=== PATIENT | male | born 1970 | race Two or more races ===

== ENCOUNTER → 2020-09-14 09:12 | Outpatient (BNVA) | payer OTHER, SELFPAY | PROVIDERS: PCP Internal Medicine; Referring Provider Internal Medicine; Visit Provider Nurse Practitioner | DX: Z01.818 Encounter for other preprocedural examination (principal); Z80.0 Family history of malignant neoplasm of digestive organs | CPT/HCPCS: 99213 ==

== ENCOUNTER 2020-10-12 07:35 | Day surgery (SDC) | payer OTHER, SELFPAY ==
[2020-10-06 10:57] VITALS: BMI 24.7
--- NOTE | 2020-10-10 13:49 | P.CONAN_ITS ---
Documented by User: Sussy Coreas 10/10/20 13:49 HPI - Anesthesia Eval Consult details Narrative: 50yo M for Colonoscopy ON LICENSE OF [facility] Past Medical History Medical History Elevated cholesterol JOHN on CPAP Family History Family History Mother Cancer Father No problems noted. Brother Colon abnormality Surgical History Surgical History No history of previous surgery Social History Social History Alcohol intake: current Alcohol intake frequency: does not drink Smoking Status: Former smoker Smoking Quit Date: 2016 Use of substances other than those prescribed or required for medical reasons: No Advance Directives: No Advance Directives Information Provided: No Advance Directives on File: No Meds Allergies Allergy/AdvReac Type Severity Reaction Status Date / Time No Known Allergies Allergy Verified 10/06/20 10:54 Home Medications Medication Instructions Recorded Confirmed Type fluticasone propionate 2 spray INTRANASAL DAILY 10/06/20 10/06/20 History nabumetone 1 tab PO BID 10/06/20 10/06/20 History Exam Exam Date and Time: October 10, 2020 1349 Height,Weight and Vital Signs: Height 5 ft 9 in Weight 76.204 kg Assessment and Plan Assessment Anesthesia Assessment: Chart Reviewed Documented by User: Lyn Villarreal 10/12/20 08:28 ON LICENSE OF [facility] Past Medical History Medical History Elevated cholesterol JOHN on CPAP Family History Family History Mother Cancer Father No problems noted. Brother Colon abnormality Surgical History Surgical History No history of previous surgery Social History Social History Alcohol intake: current Alcohol intake frequency: does not drink Smoking Status: Former smoker Smoking Quit Date: 2016 Use of substances other than those prescribed or required for medical reasons: No Advance Directives: No Advance Directives Information Provided: No Advance Directives on File: No Meds Allergies Allergy/AdvReac Type Severity Reaction Status Date / Time No Known Allergies Allergy Verified 10/06/20 10:54 Home Medications Medication Instructions Recorded Confirmed Type fluticasone propionate 2 spray INTRANASAL DAILY 10/06/20 10/06/20 History nabumetone 1 tab PO BID 10/06/20 10/06/20 History Exam Airway Mallampati Class: II TM Dist: >3cm Neck ROM: Full Loose/Missing/Broken Teeth: No Heart: RRR Lungs: CTA Assessment and Plan Assessment Anesthesia Assessment: Anesthesia Plan Discussed and Chart Reviewed Final Anesthetic Review NPO: Yes ASA Class: II Final Preanesthetic Review: Meds/Allgs Chart Reviewed, Consent Obtained/Reviewed and Anes Risks/Benef Reviewed Patient Risk: Low Procedure Risk: Low Anesthetic Plan Anesthetic Plan: MAC: Disposition: Standard PACU
[2020-10-12 07:55] VITALS: BP 133/86; PULSE 75; RESP 18; TEMP 36.2; O2SAT 99
[2020-10-12] MEDS: Lactated Ringers 1,000 ML 100 ML IVCONT (08:07)
--- NOTE | 2020-10-12 08:38 | MHC.SHP ---
Pre-Procedural Eval Section A The patient is an INPATIENT: No Changes since office visit: Yes Patient answered all questions; No Cold of Flu in the past 2 weeks, No New Medical Problems and No Changes in Medication The History & Physical has been completed within 30 days and I have reviewed it.: Yes Section B Chief Complaint: SCREENING,FAMILY HX OF COLON CANCER Allergies: Allergies Allergy/AdvReac Type Severity Reaction Status Date / Time No Known Allergies Allergy Verified 10/06/20 10:54 Plan Diagnosis/Plan: Unchanged Patient has been examined and remains a candidate for the planned procedureYES
--- NOTE | 2020-10-12 09:08 | PM.PROC ---
Brief Operative Note Date of procedure: 10/12/20 Pre-op diagnosis: COLON CANCER SCREENING, POSITIVE FAMILY HX--2 MEMBERS Post-op diagnosis: other (NEG EXAM; EXCELLENT PREP) Procedure: COLONOSCOPY Anesthesia: MAC (AL SINGH ANTI, MD) Surgeon: Marisela Crum Estimated blood loss (mL): 0 Pathology: none sent Condition: stable Disposition: PACU
[2020-10-12 09:14] VITALS: BP 107/68; PULSE 70; RESP 12; TEMP 36.2; O2SAT 98
--- NOTE | 2020-10-12 09:19 | PC.NURSE ---
patient alert and awake. beulah po challenge.
[2020-10-12 09:33] VITALS: BP 133/86; PULSE 65; RESP 16; O2SAT 100
--- NOTE | 2020-10-12 09:39 | PC.NURSE ---
iv removed. dressing self in chair. ride called. no complaints.
--- NOTE | 2020-10-12 09:51 | HO.POSTANES ---
Post Anesthesia Evaluation Post Anesthesia Evaluation Vital Signs: Vital Signs Temp Pulse Resp BP Pulse Ox 10/12/20 09:33 97.1 F 65 16 133/86 100 10/12/20 09:14 97.1 F 70 12 107/68 98 10/12/20 07:55 97.1 F 75 18 133/86 99 Anesthesia: Monitored Mental Status: Awake Pain Control: Satisfactory Nausea/Vomiting: None Hydration: Adequate Anesthesia-Related Issues: No Anes. Related Issues
--- NOTE | 2020-10-12 10:29 | OP_ITS ---
SURGEON: Marisela Crum MD PREOPERATIVE DIAGNOSIS: Colon cancer screening, Postive family history POSTOPERATIVE DIAGNOSIS: Negative exam. PROCEDURE PERFORMED: Colonoscopy. ESTIMATED BLOOD LOSS: No blood loss. COMPLICATIONS: No complications. ANESTHESIA: Monitored. ANESTHESIOLOGIST: Vangie Cordero CRNA. ASSISTANTS: No hygiene assistant. SPECIMENS: No specimens CAR STORER: Dr. Crum. CONDITION: Postprocedure, stable. FINDINGS: Digital rectal exam revealed prostate to be normal to digital palpation. Video colonoscope was introduced without difficulty. It was navigated into the rectosigmoid and sigmoid and up through descending, transverse, ascending colon down into the cecal cap. Appendiceal orifice was seen. Ileocecal valve was seen. Prep was good to excellent throughout. Full rotational views on withdrawing the scope. No mucosal lesions were seen. Anorectal verge clear. PLAN AND CURRENT RECOMMENDATIONS: Repeat asymptomatic screening with positive family history of colon cancer is 5 years. GRAFT OR IMPLANTS: No grafts or implants. Marisela Crum MD MEN/MODL / [id number] MTDD
== END 2020-10-12 10:12 | disposition home or self-care (01) ==
PROVIDERS: PCP Internal Medicine; Visit Provider Internal Medicine Gastroenterology
PROC: 0DJD8ZZ Inspection of Lower Intestinal Tract, Via Natural or Artificial Opening Endoscopic (ICD-10-PCS; CPT 45378; principal; 2020-10-12 08:30)
DX: Z12.11 Encounter for screening for malignant neoplasm of colon (principal); Z80.0 Family history of malignant neoplasm of digestive organs; G47.33 Obstructive sleep apnea (adult) (pediatric); E78.00 Pure hypercholesterolemia, unspecified; Z99.89 Dependence on other enabling machines and devices; Z79.899 Other long term (current) drug therapy; Z87.891 Personal history of nicotine dependence
CPT/HCPCS: 45378

== ENCOUNTER → 2020-11-21 09:00 | Outpatient (BNVA) | payer OTHER, SELFPAY | PROVIDERS: PCP Internal Medicine; Visit Provider Nurse Practitioner Family | DX: Z76.89 Persons encountering health services in other specified circumstances (principal) ==

== ENCOUNTER 2021-04-19 10:36 | Outpatient (REF) | payer OTHER, SELFPAY | END 2021-04-19 10:37 | disposition home or self-care (01) | LOC: HO.LAB 10:36 | PROVIDERS: Visit Provider Internal Medicine | DX: Z20.822 Contact with and (suspected) exposure to COVID-19 (principal) | CPT/HCPCS: C9803; U0003; U0005 ==

== ENCOUNTER 2024-06-09 08:29 | Outpatient (REF) | payer MEDICAID, SELFPAY ==
[2024-06-09 14:10] LABS: MANUAL DIFF FLAG NO
[2024-06-09 14:18] LABS: Basophils Percent Auto 0.6 % (0-2); Eosinophils Absolute Auto 0.2 X10*3/uL (0.0-0.4); Eosinophils Percent Auto 2.8 % (0-4); Hematocrit 41.9 % (42.0-52.0); Hemoglobin 13.6 g/dl (14.0-18.0); Imm Gran Abs Auto 0.01 X10*3/uL (0.00-0.03); Imm Gran Pct Auto 0.2 % (0.0-0.4); Lymphocytes Absolute Auto 1.9 X10*3/uL (1.2-4.9); Lymphocytes Percent Auto 35.1 % (20-40); Mean Corpuscular HGB Conc 32.5 g/dl (31.0-36.0); Mean Corpuscular Hemoglobin 28.2 pg (27.0-33.0); Mean Corpuscular Volume 86.9 fL (80.0-98.0); Mean Platelet Volume 11.4 fL (9.4-12.4); Monocytes Absolute Auto 0.4 X10*3/uL (0.1-1.2); Monocytes Percent Auto 6.5 % (2-11); Neutrophils Percent Auto 54.8 % (45-73); Platelet Count 216 X10*3/uL (160-400); Red Blood Count 4.82 X10*6/uL (4.60-5.80); Red Cell Distribution Width 13.4 % (11.0-16.0); White Blood Count 5.4 X10*3/uL (4.8-10.8)
[2024-06-09 14:53] LABS: Alanine Aminotransferase 19 U/L (0-40); Albumin Level 4.3 g/dL (3.5-5.0); Alkaline Phosphatase 66 U/L (39-117); Anion Gap 12 (12-20); Aspartate Amino Transferase 24 U/L (5-37); Bilirubin Total 1.8 mg/dL (0.0-1.0); Blood Urea Nitrogen 12 mg/dL (9-16); Carbon Dioxide 26 mmol/L (22-29); Chloride 107 mmol/L (96-108); Cholesterol 199 mg/dL (<200); Estimated Glomerular Filt Rate > 60; Glucose Random 86 mg/dL (60-115); HDL Cholesterol 42 mg/dL (>40); LDL Cholesterol Calculated 129 mg/dL (<100); Potassium 3.9 mmol/L (3.3-5.1); Sodium 141 mmol/L (135-145); TSH reflex Free T4 0.87 uIU/mL (0.32-4.0); Total Protein 7.1 g/dL (6.5-8.0); Triglycerides 143 mg/dL (<150)
[2024-06-10 08:43] LABS: HIV AB/AG Nonreactive (Nonreactive); HIV Num 1 0.05 S/CO (0.00-0.99); ~HepC Num1 0.15 S/CO (0.00-0.79); ~Hepatitis C Antibody Nonreactive (Nonreactive)
== END 2024-06-09 08:30 | disposition home or self-care (01) ==
LOC: HO.CHCLDS 08:29
PROVIDERS: Visit Provider Internal Medicine
DX: E66.09 Other obesity due to excess calories (principal); Z68.30 Body mass index [BMI] 30.0-30.9, adult
CPT/HCPCS: 36415; 80053; 80061; 84443; 85025; 86803; 87389

== ENCOUNTER 2024-06-11 10:54 | Outpatient (AMB) | payer MEDICAID, SELFPAY ==
--- NOTE | 2024-06-11 07:56 | MHC.OFFVIS ---
Intake Visit Reasons: LDCT Allergies No Known Allergies Allergy (Verified 10/06/20 10:54) HPI HPI LDCT: Details: Initial visit for this 53yo former smoker with a 21PYH. Patient started smoking at age 16 for 28 years at 1/2-1ppd. He quit about 9 years ago in 2014. Reports marijuana use. . Denies second hand smoke exposure. Denies exposure to chemicals or substances like asbestos. . Denies known family history of lung cancer. Denies personal history of cancers. Denies chest CT in last year. . Denies recent travel outside the [place]. Denies recent respiratory illness or recent hospitalization for respiratory issues. Denies testing positive for COVID. Admits receiving COVID Vaccine.x 2. . Denies fever, chills, new/worsening cough, hemoptysis, hoarseness or dysphagia. Denies significant chest pain, significant dyspnea or unintentional weight loss. Patient Lung Cancer Screening Questionnaire reviewed with patient by provider. . Shared Decision Making Completed. Patient meets criteria. Discussed in detail with patient, the risk vs benefit of LDCT screening. Patient consents to proceed with scan. Discussed and encouraged continued smoking cessation. [facility] Medical History (Updated 06/11/24 @ 11:13 by Gayle Alvarado PA-C) Elevated cholesterol JOHN on CPAP Personal history of nicotine dependence Family history of colon cancer Surgical History (Updated 06/08/24 @ 08:44 by Gayle Alvarado PA-C) History of colonoscopy Family History Mother Cancer Father No problems noted. Brother Colon abnormality Social History (Updated 06/11/24 @ 11:13 by Gayle Alvarado PA-C) Alcohol intake: current Alcohol intake frequency: does not drink Patient Tobacco Use Status: Former Tobacco user Years Smoked: (onset 16yo, 1/2-1ppd x 28yrs, 21pyh, quit 2014) Assessment & Plan Assessment & Plan (1) Personal history of nicotine dependence: Comment: (former smoker - onset 16yo, 1/2-1ppd x 28yrs, 21pyh, quit 2014) Code(s): Z87.891 - Personal history of nicotine dependence Category: Medical Plan: - SDM visit completed today in office. - Patient meets criteria for LDCT for lung cancer screening purposes and is asymptomatic. - Smoking cessation counseling offered. Patients can always call [phone]. - Will arrange for a LDCT scan of the chest for screening purposes at [facility]. - Risks, benefits, and alternatives were discussed in detail and the patient agrees to proceed. - Risks discussed include but are not limited to: radiation exposure, anxiety during testing and while awaiting results, false negatives, false positives and possibility of additional intervention such as further imaging or surgical procedures for benign disease. - Benefits are obviously detection of lung cancer at an early stage which can lead to improved outcomes. - Discussed the importance of screening program compliance with adherence to yearly LDCT scan as scheduled - or sooner interval scans for personalized screening regimen. - Discussed follow up plan. Our office will send a letter discussing results and if needed set up phone call and office visit based on CT findings. - Patient educated on results categorization and the management decisions for suspicious findings potentially found on the screening LDCT scan. Any patient with a Lung RADS score of 3 or 4 will be reviewed by a multidisciplinary team at [facility] to form a plan of action in regards to scan findings. - If further work up is warranted for a suspicious lung finding this will be followed by the Lung Cancer Screening program in conjunction with the Thoracic Surgery Department at [facility]. - A copy of the office note and LDCT will be sent to the patient's PCP - as well as documentation on any associated further plans of care. - Incidental findings on LDCT are the PCP's responsibility. These findings are indicated with an S finding on the LDCT Assessment. A note discussing the findings will be sent to the PCP who is then responsible for further management. - All questions answered.? Coding Level of Care Code Lung Cancer Screening G0296 Diagnoses Personal history of nicotine dependence Z87.891
== END 2024-06-11 13:06 | disposition home or self-care (01) ==
PROVIDERS: PCP Internal Medicine; Referring Provider Internal Medicine; Visit Provider Physician Assistant Medical
DX: Z87.891 Personal history of nicotine dependence (principal)
CPT/HCPCS: G0296

== ENCOUNTER 2024-06-11 11:16 | Outpatient (REF) | payer MEDICAID, SELFPAY ==
--- NOTE | ~2024-06-11 | CT_ITS ---
EXAMINATION: CT LOW-DOSE SCREENING CHEST WITHOUT CONTRAST CLINICAL INFORMATION: Nicotine dependence. The patient has a 27 pack-year history of smoking, having quit 9 years ago. COMPARISON: None available. TECHNIQUE: Multidetector volumetric CT imaging of the chest is performed on a Siemens SOMATOM Definition scanner without contrast using low dose technique. Additional 2D coronal and sagittal reformatted images and axial 3D maximum intensity projection (MIP) images are generated on the CT workstation. This CT examination was performed using dose optimization techniques as appropriate, variously including the following: *Automated exposure control *Adjustment of mA and/or kV according to patient size (this includes techniques or standardized protocols for targeted exams where dose is matched to indication/reason for exam; i.e. extremities or head) *Use of iterative reconstruction technique TOTAL EXAM DLP: 55 mGy-cm. CTDIvol: 1.53 mGy. Please note, due to [employer] contractual, systems, and staffing issues, a radiologist was not available for review and dictation until 07/20/2024. FINDINGS: Mild respiratory motion limits sensitivity at the lung bases bilaterally. PULMONARY NODULES: -2 mm nodule right anterior apex, (series 5, image 77). -3 mm fissural nodule posterior left upper lobe, subpleural, most likely intrapulmonary lymph node (series 5, image 169). -2No suspicious nodules. LUNGS: -Lungs bilaterally symmetrically expanded. No effusion or pneumothorax. Central airways normal. Small airways normal. -No consolidations or abnormal groundglass opacities. MEDIASTINUM: Aorta is normal in caliber and course. No aneurysm. -Main pulmonary artery normal in size. -No abnormal lymphadenopathy present in the mediastinum or hilum. -Normal esophagus with probable small type I hiatus hernia. -Heart size is top normal. No pericardial effusion. CORONARY ARTERY CALCIFICATION: None visualized on this study. THYROID GLAND: Unremarkable to the extent seen. CHEST WALL/AXILLA: No masses or abnormal lymph nodes. UPPER ABDOMEN: -Calcified granuloma in segment 2 of the liver. -No additional findings allowing for low-dose technique. OSSEOUS STRUCTURES: No suspicious lytic or blastic bone lesion. There is a moderate to severe dextroconvex thoracolumbar scoliosis, apex at T9. Associated mild degenerative spondylosis. CT/CT lung screening IMPRESSION: 1. Mild motion degradation at the lung bases. 2. Tiny pulmonary nodules measuring up to 3 mm in the left major fissure. No suspicious nodules identified. 3. No active lung disease. No lymphadenopathy. 4. Moderate to severe right convex scoliosis of the thoracolumbar spine, apex at T9. 5. Small type I hiatus hernia. ASSESSMENT: 1. Lung-RADS Category 2: Benign appearance or behavior of nodules. Respiratory motion. 2. Lung-RADS Category S: None. RECOMMENDATION: Continued routine annual low-dose CT lung screening in 1 year is recommended. An order for CT CHEST LOW DOSE CANCER SCREENING ([id number]) can be placed.
== END 2024-06-11 11:17 | disposition home or self-care (01) ==
LOC: HO.CT 11:16
PROVIDERS: Visit Provider Physician Assistant Medical
DX: Z12.2 Encounter for screening for malignant neoplasm of respiratory organs (principal); Z87.891 Personal history of nicotine dependence
CPT/HCPCS: 71271; G0296

== ENCOUNTER → 2024-06-11 11:16 | Outpatient (BNV) | payer MEDICAID, SELFPAY | PROVIDERS: Visit Provider Radiology Diagnostic Radiology | DX: F17.200 Nicotine dependence, unspecified, uncomplicated (principal) | CPT/HCPCS: 71271 ==

== ENCOUNTER → 2024-08-20 13:43 | Outpatient (REF) | payer MEDICAID, SELFPAY ==
--- NOTE | 2024-08-20 13:46 | CA_ITS ---
Transthoracic Echocardiogram Patient (Last, First, Middle): Bryan Godinez, Gender: Male Date of : 1970 Age: 54 Procedure Date: 08/20/2024 Procedure Type: Transthoracic Echocardiogram Location: OP Height: 175.26 cm Weight: 70.31 kg BSA: 1.85 m2 Heart Rate: 63 bpm BP: 142 / 62 mmHg Promotions Specialist: SB Referring MD: King Arteaga MD Symptoms: HEART MURMUR Study Quality: Adequate ECG Rhythm: Sinus Conclusions: - 1. Normal LV ejection fraction of 50-55% with apical wall motion abnormality with presence of a small apical thrombus with normal filling pattern 2. At least moderate aortic regurgitation 3. Upper limits of normal ascending aortic size 4. No gross pericardial effusion Findings Procedure Information Contrast agent, definity, is being given per protocol without apparent complications. Left Ventricle Mildly increased left ventricular cavity size. There is normal left ventricular wall thickness. The left ventricular systolic function is low normal. Spectral Doppler is indicative of a normal filling pattern. There is a small immobile apical thrombus in the left ventricle. Wall Motion Rest Echo Findings The apex segment is dyskinetic. All other scored wall segments showed normal motion. Right Ventricle Normal right ventricular cavity size and systolic function. Atria Both atria are normal in size. There is no evidence of interatrial shunt. Aortic Valve There is mild calcification of the aortic valve. There is mild thickening of the aortic valve. There is no aortic valve stenosis. There is moderate aortic valve regurgitation. Mitral Valve Normal mitral valve structure and function. There is trace mitral valve regurgitation. There is no mitral valve stenosis. Pulmonic Valve The pulmonic valve is likely normal. There is trace pulmonic valve regurgitation. Tricuspid Valve Likely normal tricuspid valve structure and function. Tricuspid regurgitation envelope is inadequate for calculation of right ventricular systolic pressure. Normal right atrial pressure. Great Vessels All visible segments of the aorta are normal in size. The pulmonary artery was not well visualized. There is no dilatation of the ascending aorta measuring 3.60 cm. Venous The inferior vena cava is normal in size and collapses greater than 50% with inspiration. Pericardium/Pleural There is no evidence of pericardial effusion. Prior Study Comparison No prior study available for comparison. Measurements 2D Linear Measurements IVSd: 1.17 0.6-0.9/0.6-1.0 cm LVIDd: 6.13 3.9-5.3/4.2-5.9 cm LVIDd Index: 3.31 2.4-3.2/2.2-3.1 cm/m2 LVIDs: 3.94 2.0-3.6 cm LVPWd: 1.15 0.7-1.1 cm LA Diam: 3.20 2.7-3.8/3.0-4.0 cm LAIDs Index: 1.73 1.5-2.3 cm/m2 LV Mass: 455.49 67-162/88-224 g LV Mass Index: 246.21 43-95/49-115 g/m2 LVOT Diam: 2.30 3.0+(-)1.3 cm 2D Systolic Function EF 4C: 51.30 >55% EF 2C: 50.60 >55% EF BiP: 50.90 >55% Mitral Valve MV Pk E: 0.70 MV PK A: 0.55 E/A: 1.30 E'Lateral: 11.40 E/E' Lat: 6.10 Aortic Valve AoV Pk Alexy: 1.70 AoV Mn Alexy: 1.13 AoV VTI: 0.34 AoV Pk Grad: 12.00 Aov Mn Grad: 6.00 JOSE Cont.VTI: 3.49 AI Pk Alexy: 4.02 AI VTI: 2.09 AI Republic: 2.55 LVOT LVOT Pk Alexy: 1.46 LVOT Mn Alexy: 1.01 LVOT VTI: 0.28 LVOT Pk Grad: 9.00 LVOT Mn Grad: 5.00 LVOT Diam: 2.30 LVOT Area: 4.15 Diastolic Function MV Pk E: 0.70 MV Pk A: 0.55 E/A: 1.30 E' Laterial: 11.40 E/E' Lat: 6.10 Right Ventricle TAPSE (mm): 16.30 TVS' Alexy: 11.00 Tricuspid Valve RA Press: 3.00 Great Vessels Aorta Sinus of Valsalva: 3.50 2.0-3.5 cm Ao Asc: 3.60 2.1-3.4 cm Ao Arch: 3.10 Pulmonary Veins Pulm Vein S/D 1.10 Pulmonary Valve PV Pk Alexy: 0.94 Peak PV Grad: 4.00 Updated in Other Vendor System with Status of Final Harpreet Meadows MD electronically signed on 08/20/2024 3:21:30 PM with status of Final
--- NOTE | 2024-08-20 16:22 | HO.CARDTECH ---
5511 Dr. Meadows notified of preliminary echo findings. Images reviewed by Dr. Meadows. Instructed ok to let pt go home. Dr. Meadows will attempt to contact ordering MD.
== END ==
LOC: HO.CARD 13:43
PROVIDERS: PCP Internal Medicine; Visit Provider Internal Medicine
DX: R01.1 Cardiac murmur, unspecified (principal)
CPT/HCPCS: 93306; Q9957

== ENCOUNTER → 2024-08-20 13:46 | Outpatient (BNV) | payer MEDICAID, SELFPAY | PROVIDERS: PCP Internal Medicine; Visit Provider Internal Medicine Cardiovascular Disease | DX: I35.1 Nonrheumatic aortic (valve) insufficiency (principal) | CPT/HCPCS: 93306 ==

== ENCOUNTER 2024-12-31 08:57 | Outpatient (REF) | payer MEDICAID, SELFPAY ==
--- OUTSIDE RECORDS SUMMARY | 2024-12-31 09:25 | XMS_ITS | Encounter Summary ---
Author Organization [employer] Address [address] [place] [address] Care Team Providers Care Oven Unloader Name Role Phone King Gary MD Primary Care Prov ider Encounter Details Date Type Department Care Team (Latest Contact Info) Description 12/27/2024 Travel Social History Tobacco Use Types Packs/Day Years Used Date Smoking Tobacco: Former Cigarettes 2013 Smokeless Tobacco: Never Alcohol Use Standard Drinks/Week Comments Never 0 (1 standard drink = 0.6 oz pur e alcohol) Depression Answer Date Recorded Patient Health Questionnaire-9 Score 0 04/02/2024 Patient Health Questionnaire-9 Score 0 04/02/2024 Last PHQ-9: Questionnaire Data Not on file 0 04/02/2024 Housing Stability Answer Date Recorded What is your housing situation today? I have adelfo willis 04/02/[address] you li ve. Do you have problems with any of the following? None of the above 04/02/2024 Food Insecurity Answer Date Recorded Within the past 12 months, y ou worried that your food would run out before you got money to buy more: Never True 04/02/2024 Within the past 12 months,th e food you bought just didn't last and you didn't have enough money to get more: Never True 01/2024 Transportation Answer Date Recorded In the past 12 months, has l ack of transportation kept you from medical appts, meetings, work or from getting things needed for daily living? No 04/02/2024 Utilities Answer Date Recorded In the past 12 months, has t he electric, gas, oil or water company threatened to shut off services in your home? No 04/02/2024 Depression Answer Date Recorded Patient Health Questionnaire-2 Score 0 04/02/2024 Internet Access Answer Date Recorded Internet Access Q1 Yes 12/27/2024 Internet Access Q2 Not on file 12/27/2024 Sex and Gender Information Value Date Recorded Sex Assigned at Male 09/30/2022 10:20 AM EDT Legal Sex Male 10:20 AM EDT Gender Identity Male 09/30/2022 10:20 AM EDT Sexual Orientation Straight 09/30/2022 10 :20 AM EDT documented as of this encounter Plan of Treatment Upcoming Encounters Date Type Department Care Team (Late st Contact Info) Description 01/27/2025 9:30 AM EST Telemedicine [facility] [address] [place] [address] King Gary MD [address] [place] [address] documented as of this encounter Visit Diagnoses Not on filedocumented in this encounter Additional Health Concerns Assessment Noted Time PHQ-9 Depression Total Score: 0 04/02/20 9:31 AM EDT documented as of this encounter Care Teams Oven Unloader Relationship Specialty Start Date End Date King Gary MD [address] [place] [address] PCP - General Internal Medicine 04/03/24 documented as of this encounter
--- OUTSIDE RECORDS SUMMARY | 2024-12-31 09:25 | XMS_ITS | Encounter Summary ---
Author Organization [employer] Address [address] [place] [address] Care Team Providers Care Radiotelephone Operator Name Role Phone King Gary MD Primary Care Prov ider Reason for Visit * Reason Onset Date Comments Lab Orders 04/08/2024 Encounter Details Date Type Department Care Team ([facility] st Contact Info) Description 04/08/2024 Telephone [facility] [address] [place], [place] [phone] King Gary MD [address] [place], [place] [phone] Lab Orders Social History Tobacco Use Types Packs/Day Years [...] Recorded Patient Health Questionnaire-2 Score 0 04/02/2024 Sex and Gender Information Value Date Recorded Sex Assigned at Male 09/30/2022 10:20 AM EDT Legal Sex Male 10:20 AM EDT Gender Identity Male 09/30/2022 10:20 AM EDT Sexual Orientation Straight 09/30/2022 10 :20 AM EDT documented as of this encounter Miscellaneous Notes * Telephone Encounter - Cathy Ronnie - 04/08/2024 12:41 PM EDT Tc from pt requesting to get labs done for check up. States discusses with provider during 04/02 tele. Please contact pt at [phone] documented in this encounter Plan of Treatment Upcoming Encounters Date Type Department Care Team (Late st Contact Info) Description 01/27/2025 9:30 AM EST Telemedicine [facility] [address] [place] [address] King Gary MD [address] [place] [address] documented as of this encounter Visit Diagnoses Not on filedocumented in this encounter Additional Health Concerns Assessment Noted Time PHQ-9 Depression Total Score: 0 04/02/20 9:31 AM EDT documented as of this encounter Care Teams Radiotelephone Operator Relationship Specialty Start Date End Date King Gary MD [address] [place] [address] PCP - General Internal Medicine 04/03/24 documented as of this encounter
--- OUTSIDE RECORDS SUMMARY | 2024-12-31 09:25 | XMS_ITS | Clinical Summary ---
Author Organization [employer] Address [address] [place] [address] Care Team Providers Care Surgeon'S Assistant Name Role Phone King Gary MD Primary Care Prov ider Allergies No known active allergies Medications apixaban (Eliquis) 5 MG tablet Take 1 tablet (5 mg) by mouth 2 times daily. 60 tablet 3 5 Active atorvastatin (Lipitor) 20 MG tablet Take 1 tablet (20 mg) by mouth Once per day. 90 tablet 3 5 026 Active atorvastatin (Lipitor) 20 MG tablet Take 1 tablet (20 mg) by mouth Once per day. 30 tablet 11 4 025 Discontinued(Re order (will not trigger notification to Pharmacy)) Eliquis 5 MG tablet TAKE 1 TABLET(5 MG) BY MOUTH TWICE DAILY 60 tablet 2 4 025 Discontinued(Re order (will not trigger notification to Pharmacy)) Active Problems Problem Noted Date Diagnosed Date Apical mural thrombus 12/27/2024 Assessment & Plan (12/27/2024 10:09 AM EST): Patient on eliquis, no side effects reported, he has not followed with cardiology, missed October appointment, discussed importance and risk associated with findings, he refers has scheduled appointment for january Heart murmur 07/22/2024 Assessment & Plan (07/22/2024 11:49 AM EDT): Denied chest pain, shortness of breath, will order a echocardiogram for evaluation Encounter for physical examination 07/22/2024 Assessment & Plan (07/22/2024 11:53 AM EDT): Examination was remarkable for a high-pitched crescendo-decrescendo, midsystolic ejection murmur, patient is asymptomatic, lungs were clear. Rest of examination was unremarkable Also elevated blood pressure but upon repeating it was 139/74, discussed low sodium diet, will monitor Mixed hyperlipidemia 07/12/2024 Assessment & Plan (12/27/2024 10:17 AM EST): On atorvastatin, new labs will be ordered for guidance of medical therapy Assessment & Plan (07/26/2024 1:37 PM EDT): Patient has experienced dry mouth and nausea on the first days of taking atorvastatin, told to take it at night, watch for myalgia, skin color changes or abdominal pain, if this occurs or if he is not tolerating it yet call back to switch probably to rosuvastatin. 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 He has never been hospitalized, has not seen a provider in over 3-4 years. Has multiple family member with cancer. Up to date with colon cancer screening done on 10/2020 due in 5 years. Screening for lung cancer 04/02/2024 Assessment & Plan (04/02/2024 10:10 AM EDT): >20 pack year smoking history, stopped smoking 9-10 years ago, will send for lung cancer screening Screening for colon cancer 04/02/2024 Assessment & Plan (04/02/2024 10:25 AM EDT): Done on 10/2020, due in 5 years Encounters Date Type Department Care Team Description 12/27/2024 9:45 AM EST Telemedicine [facility] MED [facility] PEDS [address] [place] [address] King Gary MD Mixed hyperlipidemia (Primary Dx); Apical mural thrombus 12/27/2024 Travel 11/06/2024 Refill [facility] [address] [place] [address] King Gary MD 11/03/2024 Telephone [facility] [address] [place] [address] King Gary MD 10/26/2024 Orders Only [facility] [address] [place] [address] King Gary MD Verrukimberley palmaris (Primary Dx) from Last 3 Months Family History Medical History Relation Name Comments Hyperlipidemia Father Cancer Mother Cancer Sister Relation Name Status Comments Father Mother Sister Social History Tobacco Use Types Packs/Day Years Used Date Smoking Tobacco: Former Cigarettes 1 20 1 994 - 2014 Smokeless Tobacco: Never Tobacco Cessation:Counseling Given: Not Answered Alcohol Use Standard Drinks/Week Comments Never 0 [...] Orientation Straight 09/30/2022 10 :20 AM EDT Last Filed Vital Signs Vital Sign Reading Time Taken Comments Blood Pressure 144/81 06/02/2024 3:26 PM EDT Pulse 60 06/02/2024 3:26 PM EDT Temperature 37.1 ??C (98.7 ??F) 06/02/2024 3:26 PM ED T Respiratory Rate 20 06/02/2024 3:26 PM EDT Oxygen Saturation - - Inhaled Oxygen Concentration - - Weight 68.5 kg (151 lb) 06/02/2024 3:26 PM EDT Height 167.6 cm (5' 6 ) 06/02/2024 3:26 PM EDT Body Mass Index 24.37 06/02/2024 3:26 PM EDT Plan of Treatment Upcoming Encounters Date Type Department Care Team (Late st Contact Info) Description 01/27/2025 9:30 AM EST Telemedicine [facility] MED & PEDS [address], [place] [phone] King Gary MD [address] [place], [place] [phone] Health Maintenance Due Date Last Done Comments CT Colonography 1969 FIT DNA/Cologuard 1969 FIT 1969 FOBT 1969 Sigmoidoscopy 1969 Alcohol/Substance Use Screening 1981 Hepatitis B Vaccines (1 of 3 - 19+ 3-dose series) 1988 DTaP/Tdap/Td Vaccines (1 - Tdap) 01/06/2019 01/05/2019 Lung Cancer Screening 2019 Pneumococcal Vaccine: 50+ Years (1 of 1 - PCV) 2019 Zoster Vaccines (1 of 2) 2019 COVID-19 Vaccine (2 - 2023-2 5 season) 2024 04/04/2021 Influenza Vaccine (#1) 2024 Depression Screening 04/02/2025 04/02/2024, 04/02/2024 Tobacco Screening 06/02/2025 06/02/2024 Colonoscopy 10/15/2025 Colorectal Cancer Screening 10/15/2025 SDOH Screening 12/27/2025 12/27/2024 Lipid Panel 06/09/2029 06/09/2024 RSV Patients and Patients Aged 60 years or older (1 - 1-dose 75+ series) 2044 HIV Screening Completed 06/09/2024 Hepatitis C Screening Completed 06/09/2024 HIB Vaccines Aged Out No longer eligi ble based on patient's age to complete this topic HPV Vaccines Aged Out No longer eligi ble based on patient's age to complete this topic Hepatitis A Vaccines Aged Out No long er eligible based on patient's age to complete this topic IPV Vaccines Aged Out No longer eligi ble based on patient's age to complete this topic Meningococcal Vaccine Aged Out No isai palak eligible based on patient's age to complete this topic Pneumococcal Vaccine: Pediatrics (0 to 5 Years) and At-Risk Patients (6 to 49) Years) Aged Out No longer eligible b ased on patient's age to complete this topic RSV under 20 months Aged Out No longe r eligible based on patient's age to complete this topic Rotavirus Vaccines Aged Out No longer eligible based on patient's age to complete this topic Procedures Procedure Name Priority Date/Time Associated Diagnosis Comments HEPATITIS C AB W/REFL TO HCV RNA, QN, PCR Routine 06/09/2024 8:31 AM EDT Class 1 obesity due to excess calories without serious comorbidity with body mass index (BMI) of 30.0 to 30.9 in adult HIV 1/2 ANTIGEN/ANTIBODY, FOURTH GENERATION W/RFL Routine 06/09/2024 8:31 AM EDT Class 1 obesity due to excess calories without serious comorbidity with body mass index (BMI) of 30.0 to 30.9 in adult LIPID PANEL, STANDARD Routine 06/09/2024 8:31 AM EDT Class 1 obesity due to excess calories without serious comorbidity with body mass index (BMI) of 30.0 to 30.9 in adult from Last 3 Months or Most Recently Relevant to Health Maintenance Results * Hepatitis C Antibody with Reflex to HCV, RNA, Quantitative, Real-Time PCR (06/09/2024 8:31 AM EDT) Hepatitis C Antibody Nonreactive Nonreactive [facility] Comment:Antibodies to HCV no t detected; does not exclude early acuteHCV infection. Blood Venous blood specimen / Unknown 06/09/2024 8:31 AM EDT 06/09/2024 1:59 PM EDT us King Arteaga MD LAB BLOOD ORDERABL ES Final Result [facility] [address] [place] [phone] * HIV-1/2 Antigen and Antibodies, Fourth Generation, with Reflexes (06/09/2024 8:31 AM EDT) HIV AB/AG Nonreactive Nonreactive [facility] Comment:HIV-1 p24 Ag and/or HIV-1/HIV-2 Ab not detected.A test result that is nonreactive does not exclude thepossibility of exposure to or infection with HIV-1 and/orHIV-2. Nonreactive results in this assay for individualswith prior exposure to HIV-1 and/or HIV-2 may be due toantigen and antibody levels that are below the limit ofdetection of this assay.The [employer] Return HIV Ag/Ab Combo assay result andsupplemental assay results should be interpreted inconjunction with the patient's clinical presentation,history and other laboratory results. If the results areinconsistent with clinical evidence, additional testing issuggested to confirm the result. Blood Venous blood specimen / Unknown 06/09/2024 8:31 AM EDT 06/09/2024 1:59 PM EDT us King Arteaga MD LAB BLOOD ORDERABL ES Final Result [facility] [address] [place] [phone] * (ABNORMAL) Lipid Panel, Standard (06/09/2024 8:31 AM EDT) Triglycerides 143 <150 mg/dL [facility] Comment:Desirable Triglyceri de: less than 150 mg/dLBorderline High Triglyceride 150-199 mg/dLHigh Triglyceride: 200-499 mg/dLVery High Triglyceride: greater than or equal to 5OO mg/dL Cholesterol 199 <200 mg/dL [facility] Comment:Desirable Cholestero l: less than 200 mg/dLBorderline High Cholesterol: 200-239 mg/dLHigh Cholesterol: greater than 239 mg/dL LDL Cholesterol Calculated 129(H) <100 mg/dL [facility] Comment:Desirable LDL: less than 100 mg/dLNear Optimal/Above Optimal LDL: 110- 129 mg/dLBorderline High LDL: 130-159 mg/dLHigh LDL: 160-189 mg/dLVery High LDL: greater than or equal to 190 mg/dL HDL Cholesterol 42 >40 mg/dL [facility] Comment:Desirable HDL: great er than 40 mg/dL Note: This HDL assay may give artificially low results in patients with liver disease. Blood Venous blood specimen / Unknown 06/09/2024 8:31 AM EDT 06/09/2024 1:59 PM EDT us King Arteaga MD LAB BLOOD ORDERABL ES Final Result [facility] [address] [place] [phone] from Last 3 Months or Most Recently Relevant to Health Maintenance Insurance [address] Care Teams Surgeon'S Assistant Relationship Specialty Start Date End Date King Gary MD [address] [place] [phone] PCP - General Internal Medicine 04/03/24
--- OUTSIDE RECORDS SUMMARY | 2024-12-31 09:25 | XMS_ITS | Encounter Summary ---
Author Organization [employer] Address [address] [place] [address] Care Team Providers Care Renewable Energy Division Manager Name Role Phone King Gary MD Primary Care Prov ider Reason for Visit * Reason Onset Date Comments Appointment Request 04/22/2024 Lab Orders 04/22/2024 Encounter Details Date Type Department Care Team ([facility] st Contact Info) Description 04/22/2024 Telephone [facility] [address] [place] [address] King Gary MD [address] [place], [place] [phone] Appointment Request; Lab Orders Social History Tobacco Use Types [...] encounter Miscellaneous Notes * Telephone Encounter - Pk Mai - 04/22/2024 2:56 PM EDT Tc from patient requesting Lab orders states was told by Provider needs to be seen first than the orders would be put in feature writer does not see anything noted on patient chart documented in this encounter Plan of Treatment Upcoming Encounters Date Type Department Care Team (Late st Contact Info) Description 01/27/2025 9:30 AM EST Telemedicine [facility] PEDS [address] [place] [address] King Gary MD [address] [place] [address] documented as of this encounter Visit Diagnoses Not on filedocumented in this encounter Additional Health Concerns Assessment Noted Time PHQ-9 Depression Total Score: 0 04/02/20 9:31 AM EDT documented as of this encounter Care Teams Renewable Energy Division Manager Relationship Specialty Start Date End Date King Gary MD [address] [place] [phone] PCP - General Internal Medicine 04/03/24 documented as of this encounter
--- OUTSIDE RECORDS SUMMARY | 2024-12-31 09:25 | XMS_ITS | Encounter Summary ---
Author Organization [employer] Address [address] [place] [address] Care Team Providers Care Laborer Wharf Name Role Phone King Gary MD Primary Care Prov ider Encounter Details Date Type Department Care Team (Latest Contact Info) Description 12/27/2024 9:45 AM EST Telemedicine [facility] [address] [place], [place] [phone] King Gary MD [address] [place], [place] [phone] Mixed hyperlipidemia (Primary Dx); Apical mural thrombus Social History Tobacco Use Types Packs/Day Years [...] AM EDT documented as of this encounter Progress Notes * King Arteaga MD - 12/27/2024 9:45 AM EST Subjective Patient ID: Bryan Pedro is a 54 y.o. male who presents for No chief complaint on file.. Hyperlipidemia This is a chronic problem. He has no history of chronic renal disease, diabetes, hypothyroidism, liver disease, obesity or nephrotic syndrome. Pertinent negatives include no chest pain, focal sensoryloss, focal weakness, leg pain, myalgias or shortness of breath. Review of Systems Respiratory: Negative for shortness of breath. Cardiovascular: Negative for chest pain. Musculoskeletal: Negative for myalgias. Neurological: Negative for focal weakness. Objective Physical Exam Neurological: General: No focal deficit present. Mental Status: He is oriented to person, place, and time. Psychiatric: Mood and Affect: Mood normal. Behavior: Behavior normal. Assessment/Plan Problem List Items Addressed This Visit Mixed hyperlipidemia - Primary On atorvastatin, new labs will be ordered for guidance of medical therapy Relevant Orders Comprehensive Metabolic Panel Lipid Panel, Standard Apical mural thrombus Patient on eliquis, no side effects reported, he has not followed with cardiology, missed October appointment, discussed importance and risk associated with findings, he refers has scheduled appointment for january documented in this encounter Miscellaneous Notes * Assessment & Plan Note - King Arteaga MD - 12/27/2024 10:17 AM ESTAssociated Problem(s): Mixed hyperlipidemia On atorvastatin, new labs will be ordered for guidance of medical therapy * Assessment & Plan Note - King Arteaga MD - 12/27/2024 10:09 AM ESTAssociated Problem(s): Apical mural thrombus Patient on eliquis, no side effects reported, he has not followed with cardiology, missed October appointment, discussed importance and risk associated with findings, he refers has scheduled appointment for january documented in this encounter Plan of Treatment Upcoming Encounters Date Type Department Care Team (Late st Contact Info) Description 01/27/2025 9:30 AM EST Telemedicine [facility] [address] [place] [address] King Gary MD [address] [place] [address] Scheduled Orders Name Type Priority Associated Diagnoses Orde r Schedule Comprehensive Metabolic Panel Lab Routine Mixed hyperlipidemia Expected: 12/27/2024 (Approximate), Expires: 12/27/2025 Lipid Panel, Standard Lab Routine Mixed hyperlipidemia Expected: 12/27/2024 (Approximate), Expires: 12/27/2025 documented as of this encounter Visit Diagnoses Diagnosis Mixed hyperlipidemia- Primary Apical mural thrombus documented in this encounter Additional Health Concerns Assessment Noted Time PHQ-9 Depression Total Score: 0 04/02/20 9:31 AM EDT documented as of this encounter Care Teams Laborer Wharf Relationship Specialty Start Date End Date iKng Gary MD [address] [place] [address] PCP - General Internal Medicine 04/03/24 documented as of this encounter
[2024-12-31 12:40] LABS: Alanine Aminotransferase 28 U/L (0-40); Albumin Level 4.2 g/dL (3.5-5.0); Alkaline Phosphatase 59 U/L (39-117); Anion Gap 9 (12-20); Aspartate Amino Transferase 34 U/L (5-37); Bilirubin Total 1.9 mg/dL (0.0-1.0); Blood Urea Nitrogen 12 mg/dL (9-16); Calcium 9.6 mg/dL (8.4-10.2); Carbon Dioxide 30 mmol/L (22-29); Chloride 107 mmol/L (96-108); Cholesterol 142 mg/dL (<200); Estimated Glomerular Filt Rate > 60; Glucose Random 93 mg/dL (60-115); HDL Cholesterol 56 mg/dL (>40); LDL Cholesterol Calculated 72 mg/dL (<100); Potassium 4.1 mmol/L (3.3-5.1); Sodium 142 mmol/L (135-145); Total Protein 7.1 g/dL (6.5-8.0); Triglycerides 72 mg/dL (<150)
== END 2024-12-31 08:58 | disposition home or self-care (01) ==
LOC: HO.CHCLDS 08:57
PROVIDERS: Visit Provider Internal Medicine
DX: E78.2 Mixed hyperlipidemia (principal)
CPT/HCPCS: 36415; 80053; 80061

== ENCOUNTER 2025-03-28 07:56 | Outpatient (AMB) | payer MEDICAID, SELFPAY ==
--- OUTSIDE RECORDS SUMMARY | 2025-03-28 08:01 | XMS_ITS | Encounter Summary ---
Author Organization [employer] Address [address] [place] [address] Care Team Providers Care Video Effects Editor Name Role Phone King Gary MD Primary Care Prov ider Reason for Visit * Reason Onset Date Comments Lab Orders 04/08/2024 Encounter Details Date Type Department Care Team ([facility] st Contact Info) Description 04/08/2024 Telephone [facility] [address] [place], [place] [phone] King Gary MD [address] [place], [place] [phone] Lab Orders Social History Tobacco Use Types [...] during 04/02 tele. Please contact pt at [phone] documented in this encounter Plan of Treatment Upcoming Encounters Date Type Department Care Team (Late st Contact Info) Description 04/26/2025 9:30 AM EDT Telemedicine [facility] [address] [place] [address] King Gary MD [address] [place] [address] documented as of this encounter Visit Diagnoses Not on filedocumented in this encounter Additional Health Concerns Assessment Noted Time PHQ-9 Depression Total Score: 0 04/02/20 9:31 AM EDT documented as of this encounter Care Teams Video Effects Editor Relationship Specialty Start Date End Date King Gary MD [address] [place] [address] PCP - General Internal Medicine 04/03/24 documented as of this encounter
--- OUTSIDE RECORDS SUMMARY | 2025-03-28 08:01 | XMS_ITS | Encounter Summary ---
Author Organization [employer] Address [address] [place] [address] Care Team Providers Care Residential Appraiser Name Role Phone King Gary MD Primary Care Prov ider Reason for Visit * Reason Onset Date Comments Appointment Request 04/22/2024 Lab Orders 04/22/2024 Encounter Details Date Type Department Care Team ([facility] st Contact Info) Description 04/22/2024 Telephone [facility] [address] [place] [address] King Gary MD [address] [place], [place] [phone] Appointment Request; Lab Orders Social History Tobacco [...] than the orders would be put in short story writer does not see anything noted on patient chart documented in this encounter Plan of Treatment Upcoming Encounters Date Type Department Care Team (Late st Contact Info) Description 04/26/2025 9:30 AM EDT Telemedicine [facility] MED & PEDS [address] [place] [address] King Gary MD [address] [place] [address] documented as of this encounter Visit Diagnoses Not on filedocumented in this encounter Additional Health Concerns Assessment Noted Time PHQ-9 Depression Total Score: 0 04/02/20 9:31 AM EDT documented as of this encounter Care Teams Residential Appraiser Relationship Specialty Start Date End Date King Gary MD [address] [place] [address] PCP - General Internal Medicine 04/03/24 documented as of this encounter
--- OUTSIDE RECORDS SUMMARY | 2025-03-28 08:02 | XMS_ITS | Clinical Summary ---
Author Organization [employer] Address [address] [place] [address] Care Team Providers Care Night Guard Name Role Phone King Gary MD Primary Care Prov ider Allergies No known active allergies Medications apixaban (Eliquis) 5 MG tablet Take 1 tablet (5 mg) by mouth 2 times daily. 60 tablet 3 12/27/2024 Active atorvastatin (Lipitor) 20 MG tablet Take 1 tablet (20 mg) by mouth Once per day. 90 tablet 3 12/27/2024 Active Active Problems Problem Noted Date Diagnosed Date Apical mural thrombus 12/27/2024 Assessment & Plan (01/27/2025 9:58 AM EST): Patient has not followed with cardiology, will order echocardiogram to decide if he can be off anticoagulants Assessment & Plan (12/27/2024 10:09 AM EST): [...] monitor Mixed hyperlipidemia 07/12/2024 Assessment & Plan (01/27/2025 9:58 AM EST): Controlled, keep taking current dose of statin, follow up in 4-6 months Assessment & Plan (12/27/2024 10:17 AM EST): [...] smoking cessation, follow up in 3-4 months Verruca palmaris 07/12/2024 Assessment & Plan (07/12/2024 12:27 [...] Encounters Date Type Department Care Team Description 03/02/2025 Population Health Risk Score [facility] Department [address] [phone] Provider, Population Health Generic 01/27/2025 9:30 AM EST Telemedicine [facility] [address] [place] [address] King Gary MD Apical mural thrombus (Primary Dx); Mixed hyperlipidemia 01/27/2025 Travel 01/26/2025 Telephone [facility] [address] [place] [address] King Gary MD chart prep from Last 3 Months Family History Medical History Relation Name Comments Hyperlipidemia Father Cancer Mother Cancer Sister Relation Name Status Comments Father Mother Sister Social History Tobacco Use Types Packs/Day Years Used Date Smoking Tobacco: Former Cigarettes 2013 Smokeless Tobacco: Never Tobacco Cessation:Counseling Given: Not [...] Info) Description 04/26/2025 9:30 AM EDT Telemedicine [facility]S [address] [place] [address] King Gary MD [address] [place] [address] Health Maintenance Due Date Last Done Comments [...] 10/15/2025 SDOH Screening 12/27/2025 12/27/2024 Lipid Panel 12/31/2029 12/31/2024, 06/09/2024 RSV Patients and Patients Aged 60 [...] Procedure Name Priority Date/Time Associated Diagnosis Comments LIPID PANEL, STANDARD Routine 12/31/2024 9:00 AM EST Mixed hyperlipidemia COMPREHENSIVE METABOLIC PANEL Routine 12/31/2024 9:00 AM EST Mixed hyperlipidemia HEPATITIS C AB W/REFL TO HCV RNA, [...] Recently Relevant to Health Maintenance Results * Lipid Panel, Standard (12/31/2024 9:00 AM EST) Triglycerides 72 <150 mg/dL [facility] Comment:Desirable Triglyceri de: less than 150 mg/dLBorderline High Triglyceride 150-199 mg/dLHigh Triglyceride: 200-499 mg/dLVery High Triglyceride: greater than or equal to 5OO mg/dL Cholesterol 142 <200 mg/dL [facility] Comment:Desirable Cholestero l: less than 200 mg/dLBorderline High Cholesterol: 200-239 mg/dLHigh Cholesterol: greater than 239 mg/dL LDL Cholesterol Calculated 72 <100 mg/dL [facility] Comment:Desirable LDL: less than 100 mg/dLNear Optimal/Above Optimal LDL: 110- 129 mg/dLBorderline High LDL: 130-159 mg/dLHigh LDL: 160-189 mg/dLVery High LDL: greater than or equal to 190 mg/dL HDL Cholesterol 56 >40 mg/dL [facility] Comment:Desirable HDL: great er than 40 mg/dL Note: This HDL assay may give artificially low results in patients with liver disease. Blood Venous blood specimen / Unknown 12/31/2024 9:00 AM EST 12/31/2024 11:44 AM EST us King Arteaga MD LAB BLOOD ORDERABL ES Final Result [facility] [address] [place] [phone] * (ABNORMAL) Comprehensive Metabolic Panel (12/31/2024 9:00 AM EST) Sodium 142 135 - 145 mmol/L [facility] Potassium 4.1 3.3 - 5.1 mmol/L [facility] Chloride 107 96 - 108 mmol/L [facility] Carbon Dioxide 30(H) 22 - 29 mmol/L [facility] Anion Gap 9(L) 12 - 20 [facility] Urea Nitrogen (BUN) 12 9 - 16 mg/dL [facility] Creatinine, Serum 0.76 0.5 - 1.4 mg/dL [facility] Estimated Glomerular Filt Rate >60 [facility] Comment:Chronic Kidney Disea se: Estimated GFR < 60 mL/min/1.65x4Zmyqbc Kidney Disease: Estimated GFR < 15 mL/min/1.73m2 Glucose 93 60 - 115 mg/dL [facility] Calcium 9.6 8.4 - 10.2 mg/dL [facility] Bilirubin, Total 1.9(H) 0.0 - 1.0 mg/dL [facility] Comment:Slight Icterus. Aspartate Amino Transferase 34 5 - 37 U/L [facility] Alanine Aminotransferase 28 0 - 40 U/L [facility] Total Protein 7.1 6.5 - 8.0 g/dL [facility] Albumin Level 4.2 3.5 - 5.0 g/dL [facility] Alkaline Phosphatase 59 39 - 117 U/L [facility] Blood Venous blood specimen / Unknown 12/31/2024 9:00 AM EST 12/31/2024 11:44 AM EST us King Arteaga MD LAB BLOOD ORDERABL ES Final Result [facility] [address] [place] [phone] * Hepatitis C Antibody with Reflex to HCV, RNA, Quantitative, Real-Time PCR (06/09/2024 8:31 AM EDT) Hepatitis C Antibody Nonreactive Nonreactive [facility] Comment:Antibodies to HCV no t detected; does not exclude early acuteHCV infection. Blood Venous blood specimen / Unknown 06/09/2024 8:31 AM EDT 06/09/2024 1:59 PM EDT King Arteaga MD LAB BLOOD ORDERABL ES Final Result Performing Organization Address [facility] Co de Phone Number [facility] [address] [place] [phone] * HIV-1/2 Antigen and Antibodies, Fourth Generation, with Reflexes (06/09/2024 8:31 AM EDT) [facility] HIV AB/AG Nonreactive Nonreactive [facility] Comment:HIV-1 p24 Ag and/or HIV-1/HIV-2 Ab not detected.A test result that is nonreactive does not exclude thepossibility of exposure to or infection with HIV-1 and/orHIV-2. Nonreactive results in this assay for individualswith prior exposure to HIV-1 and/or HIV-2 may be due toantigen and antibody levels that are below the limit ofdetection of this assay.The [employer] HIV Ag/Ab Combo assay result andsupplemental assay results should be interpreted inconjunction with the patient's clinical presentation,history and other laboratory results. If the results areinconsistent with clinical evidence, additional testing issuggested to confirm the result. Blood Venous blood specimen / Unknown 06/09/2024 8:31 AM EDT 06/09/2024 1:59 PM EDT us King Arteaga MD LAB BLOOD ORDERABL ES Final Result Performing Organization Address [facility]/ZIP Co de Phone Number [facility] [address] [place] [address] [phone] from Last 3 Months or Most Recently Relevant to Health Maintenance Insurance [employer] Care Teams Night Guard Relationship Specialty Start Date End Date King Gary MD [address] [place] [phone] PCP - General Internal Medicine 04/03/24
--- NOTE | 2025-03-28 08:23 | MHC.OFFVIS ---
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 Last year, it appears he underwent an echocardiogram that showed apical wall motion abnormality with thrombus. There was also aortic regurgitation. Patient himself denies any prior cardiac history. He denies any history of coronary disease or myocardial infarction or cardiomyopathy or in fact any other cardiac issues. Last year, he apparently had some food poisoning type symptoms when he also has some chest pain but otherwise he does not have any exertional angina or shortness of breath. He states he climbs several flights of stairs regularly with no issues. He smokes marijuana but denies any cigarette use recently but has smoked in the past. He has used drugs like cocaine in the past but nothing in the last few years. [facility] Medical History (Updated 03/28/25 @ 08:43 by Akira Guerra MD) Elevated cholesterol JOHN on CPAP Personal history of nicotine dependence Family history of colon cancer Surgical History History of colonoscopy Family History Mother Cancer Father No problems noted. Brother Colon abnormality Social History (Updated 03/28/25 @ 08:30 by Alpa Brown CMA) Unable to assess alcohol history related to: Unknown Alcohol intake: never Patient Tobacco Use Status: Former Tobacco user Years Smoked: (onset 16yo, 1/2-1ppd x 28yrs, 21pyh, quit 2014) Substance Use Type: Marijuana Review of Systems Const Denies chills, Denies fatigue, Denies fever(s), Denies frequent falls, Denies weakness, Denies weight gain and Denies weight loss ENT Denies dizziness Card Denies chest pain, Denies leg edema, Denies lightheadedness, Denies palpitations, Denies dyspnea, Denies dyspnea on exertion and Denies orthopnea Resp Denies cough, Denies dyspnea and Denies dyspnea on exertion GI Denies bloating and Denies change in bowel habits Musc Denies muscle weakness, Denies numbness and Denies tingling Neuro Denies dizziness, Denies frequent falls, Denies numbness, Denies tingling and Denies weakness Endo Denies fatigue and Denies palpitations Physical Exam Vital Signs: Last Vital Signs Pulse 63 03/28/25 08:27 BP 130/72 03/28/25 08:27 BMI result Body Mass Index 21.3 Const General: comfortable and no acute distress Orientation/consciousness: patient oriented x3 HEENT Other: Unremarkable Head: Yes normal to inspection Neck Neck: Yes normal visual inspection Chest Chest palpation & inspection: normal inspection of the chest Resp Auscultation: clear to auscultation bilaterally Cardio Palpation: normal PMI Heart sounds: S1 normal heart sound present, S2 normal heart sound present, no gallops, Murmur heart sound present diastolic III/ and no rubs GI Palpation (GI): Soft to palpation Back/Spine/Pelvis Other: unremarkable Skin General skin exam: no rashes or lesions noted Neuro General: patient oriented x3 Extrem General: Yes normal to inspection Psych Mental Status: mental status grossly normal Office Procedures EKG Details: EKG with sinus rhythm at 63/Min; inferior as well as anterolateral T inversions. Rightward axis. [id number], Complete Assessment & Plan Assessment & Plan (1) Regional wall motion abnormality of heart: Code(s): R93.1 - Abnormal findings on diagnostic imaging of heart and coronary circulation Category: Medical (2) Atherosclerotic cardiovascular disease: Code(s): I25.10 - Atherosclerotic heart disease of [place] coronary artery without angina pectoris Category: Medical (3) Left ventricular apical thrombus: Code(s): I51.3 - Intracardiac thrombosis, not elsewhere classified Category: Medical (4) Non-rheumatic aortic regurgitation: Code(s): I35.1 - Nonrheumatic aortic (valve) insufficiency Category: Medical Plan Echocardiogram from last year, enlarged left ventricle with preserved LVEF. Apical dyskinesis with suspicion of thrombus. Reported at least moderate aortic regurgitation. Etiology for the findings are not clear as he denies any prior cardiac history or any symptoms. One possibility is events related to remote drug use. We will repeat his echocardiogram to reassess left ventricular cavity size as well as degree of aortic regurgitation and wall motion abnormality. We also discussed about diagnostic catheterization to assess coronary anatomy and he agrees with that. Pros and cons discussed and he is willing to proceed. We can arrange the above. In the interim, continue anticoagulation without changes. We will follow up after the testing is completed. Orders: Orders CA echo transthorac w con Today I35.1 - Nonrheumatic aortic (valve) insufficiency, I51.3 - Intracardiac thrombosis, not elsewhere classified, R93.1 - Abnormal findings on diagnostic imaging of heart and coronary circulation Cardiac Cath LT Diagnostic Today I25.10 - Atherosclerotic heart disease of [place] coronary artery without angina pectoris Complete Blood Count no Diff Today I25.10 - Atherosclerotic heart disease of [place] coronary artery without angina pectoris Basic Metabolic Panel Today I25.10 - Atherosclerotic heart disease of [place] coronary artery without angina pectoris Prothrombin Time INR Today I25.10 - Atherosclerotic heart disease of [place] coronary artery without angina pectoris Coding Level of Care Code New Pt Level 5 (13749) Complex EM visit Add On G2211 Diagnoses Regional wall motion abnormality of heart R93.1 Atherosclerotic cardiovascular disease I25.10 Left ventricular apical thrombus I51.3 Non-rheumatic aortic regurgitation I35.1 CPT Codes EKG - CPT: 42941-[id number], Complete ([id number])
[2025-03-28 08:27] VITALS: BP 130/72; PULSE 63; BMI 21.3
== END 2025-03-28 09:19 | disposition home or self-care (01) ==
LOC: HO.HCS 07:57
PROVIDERS: PCP Internal Medicine; Visit Provider Internal Medicine
DX: I35.1 Nonrheumatic aortic (valve) insufficiency (principal); I34.0 Nonrheumatic mitral (valve) insufficiency
CPT/HCPCS: 93306

== ENCOUNTER → 2025-03-28 13:28 | Outpatient (REF) | payer MEDICAID, SELFPAY ==
--- NOTE | 2025-03-28 13:30 | CA_ITS ---
Transthoracic Echocardiogram Patient (Last, First, Middle): Bryan Godinez, Gender: Male Date of : 1970 Age: 54 Procedure Date: 03/28/2025 Procedure Type: Transthoracic Echocardiogram Location: OP Height: 175.26 cm Weight: 65.32 kg BSA: 1.80 m2 Heart Rate: bpm BP: 122 / 80 mmHg Metal Buffer: Referring MD: Akira Guerra MD Symptoms: I35.1 - Nonrheumatic aortic (valve) insufficiency Study Quality: Adequate ECG Rhythm: Sinus Conclusions: - The left ventricular systolic function is low normal. The calculated ejection fraction is 53% by biplane method. - The apex segment is dyskinetic. - There is severe aortic valve regurgitation. Suspect leaflet prolapse. Findings Procedure Information Contrast agent, definity, is being given per protocol without apparent complications. Left Ventricle Mildly increased left ventricular cavity size. There is moderately increased left ventricular wall thickness. The left ventricular systolic function is low normal. The calculated ejection fraction is 53% by biplane method. Diastolic function is normal for age. No clear evidence of any thrombus. Variable LVEDD measurement, seems > 6cm. Wall Motion Rest Echo Findings The apex segment is dyskinetic. Right Ventricle Normal right ventricular cavity size. There is mildly decreased right ventricular systolic function. Atria Both atria are normal in size. Aortic Valve There is a normal trileaflet aortic valve. There is no aortic valve stenosis. There is severe aortic valve regurgitation. Suspect leaflet prolapse. By quantitative assessment, effective regurgitant orifice area 0.5cm2. Regurgitant fraction 65%. There is holodiastolic flow reversal in the proximal descending thoracic aorta. Mitral Valve There is mild anterior mitral leaflet thickening. There is no mitral valve regurgitation. There is no mitral valve stenosis. Pulmonic Valve The pulmonic valve is likely normal. Tricuspid Valve There is trace tricuspid valve regurgitation. There is no evidence of pulmonary hypertension. Great Vessels The asc aorta is normal in size. Venous The inferior vena cava is normal in size and collapses greater than 50% with inspiration. Pericardium/Pleural There is no evidence of pericardial effusion. Prior Study Comparison Changes noted compared to prior study dated: 08/20/2024. No clear evidence of thrombus. Measurements 2D Linear Measurements IVSd: 1.43 0.6-0.9/0.6-1.0 cm LVIDd: 4.79 3.9-5.3/4.2-5.9 cm LVIDd Index: 2.66 2.4-3.2/2.2-3.1 cm/m2 LVIDs: 2.82 2.0-3.6 cm LVPWd: 1.46 0.7-1.1 cm Ao Root: 3.60 2.1-3.5 cm LA Diam: 3.10 2.7-3.8/3.0-4.0 cm LAIDs Index: 1.72 1.5-2.3 cm/m2 LV Mass: 356.81 67-162/88-224 g LV Mass Index: 198.23 43-95/49-115 g/m2 LVOT Diam: 2.60 3.0+(-)1.3 cm 2D Systolic Function EF 4C: 63.60 >55% EF 2C: 38.90 >55% EF BiP: 53.00 >55% Mitral Valve MV Pk E: 0.50 MV PK A: 0.78 MV Decel Time: 177.00 E/A: 0.60 E'Lateral: 13.40 E'Medial: 7.83 E/E' Med: 6.30 E/E' Lat: 3.70 PHT: 52.00 MVA PHT: 4.23 Decel [place]: 2.80 Aortic Valve AoV Pk Alexy: 1.75 AoV Mn Alexy: 1.13 AoV VTI: 0.39 AoV Pk Grad: 12.00 Aov Mn Grad: 6.00 JOSE Cont.VTI: 3.81 AI Pk Alexy: 3.92 AI VTI: 2.07 LVOT LVOT Pk Alexy: 1.35 LVOT Mn Alexy: 0.82 LVOT VTI: 0.28 LVOT Pk Grad: 7.00 LVOT Mn Grad: 3.00 LVOT Diam: 2.60 LVOT Area: 5.31 Diastolic Function MV Pk E: 0.50 MV Pk A: 0.78 E/A: 0.60 E'Medial: 7.83 E/E' Med: 6.30 E' Laterial: 13.40 E/E' Lat: 3.70 Right Ventricle TAPSE (mm): 20.00 TVS' Alexy: 9.00 Tricuspid Valve TR Pk Alexy: 2.25 TR Pk Grad: 20.00 Great Vessels Aorta Ao Root-2D: 3.60 2.0-3.7 cm Ao Asc: 3.40 2.1-3.4 cm Pulmonary Valve PV Pk Alexy: 0.96 Peak PV Grad: 4.00 Updated in Other Vendor System with Status of Final Akira Guerra MD electronically signed on 03/29/2025 12:12:56 PM with status of Final
--- OUTSIDE RECORDS SUMMARY | 2025-03-28 16:00 | XMS_ITS | Encounter Summary ---
Author Organization [employer] Address [address] [place] [address] Care Team Providers Care Groundwater Programs Director Name Role Phone King Gary MD Primary Care Prov ider Reason for Visit * Reason Onset Date Comments Lab Orders 04/08/2024 Encounter Details Date Type Department Care Team ([facility] st Contact Info) Description 04/08/2024 Telephone [facility]S [address], [place] [phone] King Gary MD [address] [place], [place] [phone] Lab Orders Social History Tobacco Use Types [...] during 04/02 tele. Please contact pt at [phone] documented in this encounter Plan of Treatment Upcoming Encounters Date Type Department Care Team (Late st Contact Info) Description 04/26/2025 9:30 AM EDT Telemedicine [facility] [address] [place] [address] King Gary MD [address] [place] [address] documented as of this encounter Visit Diagnoses Not on filedocumented in this encounter Additional Health Concerns Assessment Noted Time PHQ-9 Depression Total Score: 0 04/02/20 9:31 AM EDT documented as of this encounter Care Teams Groundwater Programs Director Relationship Specialty Start Date End Date King Gary MD [address] [place] [address] PCP - General Internal Medicine 04/03/24 documented as of this encounter
--- OUTSIDE RECORDS SUMMARY | 2025-03-28 16:00 | XMS_ITS | Encounter Summary ---
Author Organization [employer] Address [address] [place] [address] Care Team Providers Care Project Production Engineer Name Role Phone King Gary MD Primary Care Prov ider Reason for Visit * Reason Onset Date Comments Appointment Request 04/22/2024 Lab Orders 04/22/2024 Encounter Details Date Type Department Care Team ([facility] st Contact Info) Description 04/22/2024 Telephone [facility] [address] [place] [address] King Gary MD [address] [place], [place] [phone] Appointment Request; Lab Orders Social History Tobacco [...] than the orders would be put in underwriter does not see anything noted on patient chart documented in this encounter Plan of Treatment Upcoming Encounters Date Type Department Care Team (Late st Contact Info) Description 04/26/2025 9:30 AM EDT Telemedicine [facility] MED [facility] PED[facility] [address] [place] [address] King Gary MD [address] [place] [address] documented as of this encounter Visit Diagnoses Not on filedocumented in this encounter Additional Health Concerns Assessment Noted Time PHQ-9 Depression Total Score: 0 04/02/20 9:31 AM EDT documented as of this encounter Care Teams Project Production Engineer Relationship Specialty Start Date End Date King Gary MD [address] [place] [phone] PCP - General Internal Medicine 04/03/24 documented as of this encounter
--- OUTSIDE RECORDS SUMMARY | 2025-03-28 16:01 | XMS_ITS | Clinical Summary ---
Author Organization [email or web address] Address [address] [place] [address] Care Team Providers Care Hatchery Attendant Name Role Phone King Gary MD Primary [...] Score [facility] Department [address] [phone] Provider, Population Health Generic 01/27/2025 9:30 AM EST Telemedicine [facility] [address] [place] [address] King Gary MD Apical mural thrombus (Primary Dx); Mixed hyperlipidemia 01/27/2025 Travel 01/26/2025 Telephone [facility] [address] [place] [address] King Gary MD chart prep from Last [...] Info) Description 04/26/2025 9:30 AM EDT Telemedicine [facility] [address] [place] [address] King Gary MD [address] [place] [address] Health Maintenance Due Date Last Done Comments [...] 9:00 AM EST) Triglycerides 72 <150 mg/dL [facility] Comment:Desirable Triglyceri de: less than 150 mg/dLBorderline High Triglyceride 150-199 mg/dLHigh Triglyceride: 200-499 mg/dLVery High Triglyceride: greater than or equal to 5OO mg/dL Cholesterol 142 <200 mg/dL [facility] Comment:Desirable Cholestero l: less than 200 mg/dLBorderline High Cholesterol: 200-239 mg/dLHigh Cholesterol: greater than 239 mg/dL LDL Cholesterol Calculated 72 <100 mg/dL [facility] Comment:Desirable LDL: less than 100 mg/dLNear Optimal/Above Optimal LDL: 110- 129 mg/dLBorderline High LDL: 130-159 mg/dLHigh LDL: 160-189 mg/dLVery High LDL: greater than or equal to 190 mg/dL HDL Cholesterol 56 >40 mg/dL [facility] Comment:Desirable HDL: great er than 40 mg/dL Note: This HDL assay may give artificially low results in patients with liver disease. Blood Venous blood specimen / Unknown 12/31/2024 9:00 AM EST 12/31/2024 11:44 AM EST us King Arteaga MD LAB BLOOD ORDERABL ES Final Result [facility] [address] [place] [phone] * (ABNORMAL) Comprehensive Metabolic Panel (12/31/2024 9:00 AM EST) Sodium 142 135 - 145 mmol/L [facility] Potassium 4.1 3.3 - 5.1 mmol/L [facility] Chloride 107 96 - 108 mmol/L [facility] Carbon Dioxide 30(H) 22 - 29 mmol/L [facility] Anion Gap 9(L) 12 - 20 [facility] Urea Nitrogen (BUN) 12 9 - 16 mg/dL [facility] Creatinine, Serum 0.76 0.5 - 1.4 mg/dL [facility] Estimated Glomerular Filt Rate >60 [facility] Comment:Chronic Kidney Disea se: Estimated GFR < 60 mL/min/1.26w2Jauvid Kidney Disease: Estimated GFR < 15 mL/min/1.73m2 Glucose 93 60 - 115 mg/dL [facility] Calcium 9.6 8.4 - 10.2 mg/dL [facility] Bilirubin, Total 1.9(H) 0.0 - 1.0 mg/dL [facility] Comment:Slight Icterus. Aspartate Amino Transferase 34 5 - 37 U/L [facility] Alanine Aminotransferase 28 0 - 40 U/L [facility] Total Protein 7.1 6.5 - 8.0 g/dL [facility] Albumin Level 4.2 3.5 - 5.0 g/dL [facility] Alkaline Phosphatase 59 39 - 117 U/L [facility] Blood Venous blood specimen / Unknown 12/31/2024 9:00 AM EST 12/31/2024 11:44 AM EST us King Arteaga MD LAB BLOOD ORDERABL ES Final Result [facility] [address] [place] [address] [phone] * Hepatitis C Antibody with Reflex to HCV, RNA, Quantitative, Real-Time PCR (06/09/2024 8:31 AM EDT) Hepatitis C Antibody Nonreactive Nonreactive [facility] Comment:Antibodies to HCV no t detected; does not exclude early acuteHCV infection. Blood Venous blood specimen / Unknown 06/09/2024 8:31 AM EDT 06/09/2024 1:59 PM EDT King Arteaga MD LAB BLOOD ORDERABL ES Final Result Performing Organization Address [facility] Co de Phone Number [facility] [address] [place] [phone] * HIV-1/2 Antigen and Antibodies, Fourth Generation, with Reflexes (06/09/2024 8:31 AM EDT) [facility] HIV AB/AG Nonreactive Nonreactive [facility] Comment:HIV-1 p24 Ag and/or HIV-1/HIV-2 Ab not detected.A test result that is nonreactive does not exclude thepossibility of exposure to or infection with HIV-1 and/orHIV-2. Nonreactive results in this assay for individualswith prior exposure to HIV-1 and/or HIV-2 may be due toantigen and antibody levels that are below the limit ofdetection of this assay.The [employer] HIV Ag/Ab Combo assay result andsupplemental assay results should be interpreted inconjunction with the patient's clinical presentation,history and other laboratory results. If the results areinconsistent with clinical evidence, additional testing issuggested to confirm the result. Blood Venous blood specimen / Unknown 06/09/2024 8:31 AM EDT 06/09/2024 1:59 PM EDT us King Arteaga MD LAB BLOOD ORDERABL ES Final Result Performing Organization Address [facility]/ZIP Co de Phone Number [facility] [address] [place] [phone] [phone] from Last 3 Months or Most Recently Relevant to Health Maintenance Insurance HSN [employer]IAL Care Teams Hatchery Attendant Relationship Specialty Start Date End Date King Gary MD [address] [place] [phone] PCP - General Internal Medicine 04/03/24
== END ==
LOC: HO.CARD 13:28
PROVIDERS: PCP Internal Medicine; Visit Provider Internal Medicine
DX: I35.1 Nonrheumatic aortic (valve) insufficiency (principal); I51.3 Intracardiac thrombosis, not elsewhere classified; R93.1 Abnormal findings on diagnostic imaging of heart and coronary circulation
CPT/HCPCS: 93306; Q9957

== ENCOUNTER 2025-05-21 08:31 | Outpatient (REF) | payer MEDICAID, SELFPAY ==
--- OUTSIDE RECORDS SUMMARY | 2025-05-21 08:35 | XMS_ITS | Encounter Summary ---
Author Organization [employer] Address [address] [place] [address] Care Team Providers Care Meat Puller Name Role Phone King Gary MD Primary Care Prov ider Reason for Visit * Reason Comments Med Refill Encounter Details Date Type Department Care Team ([facility] st Contact Info) Description 05/18/2025 Refill [facility] [address] [place], [place] [phone] King Gary MD [address] [place] [address] Social History Tobacco Use Types Packs/Day Years Used Date Smoking Tobacco: Former Cigarettes 2013 Smokeless Tobacco: Never Alcohol Use Standard Drinks/Week Comments Never 0 (1 standard drink = 0.6 oz pur e alcohol) Depression Answer Date Recorded Patient Health Questionnaire-9 Score 0 04/26/2025 Patient Health Questionnaire-9 Score 0 04/26/2025 Last PHQ-9: Questionnaire Data Not on file 0 04/26/2025 Housing Stability Answer Date Recorded What is [...] Date Recorded Patient Health Questionnaire-2 Score 0 04/26/2025 Internet Access Answer Date Recorded Internet Access [...] Care Team (Late st Contact Info) Description 06/30/2025 3:15 PM EDT Telemedicine [facility] [address] [place] [address] King Gary MD [address] [place] [address] documented as of this encounter Visit Diagnoses Not on filedocumented in this encounter Additional Health Concerns Assessment Noted Time PHQ-9 Depression Total Score: 0 04/26/20 25 9:32 AM EDT documented as of this encounter Care Teams Meat Puller Relationship Specialty Start Date End Date King Gary MD [address] [place] [address] PCP - General Internal Medicine 04/03/24 documented as of this encounter
[2025-05-21 09:07] LABS: Hematocrit 39.1 % (42.0-52.0); Hemoglobin 13.3 g/dl (14.0-18.0); Mean Corpuscular Hemoglobin 28.4 pg (27.0-33.0); Mean Corpuscular Volume 83.5 fL (80.0-98.0); Mean Platelet Volume 9.8 fL (9.4-12.4); Platelet Count 184 X10*3/uL (160-400); Red Blood Count 4.68 X10*6/uL (4.60-5.80); White Blood Count 5.9 X10*3/uL (4.8-10.8)
[2025-05-21 09:13] LABS: INTERNATIONAL NORM RATIO 1.2 (0.9-1.1); Prothrombin Time 13.9 SEC (10.9-12.4)
[2025-05-21 09:42] LABS: Anion Gap 9 (12-20); Blood Urea Nitrogen 21 mg/dL (9-16); Calcium 9.1 mg/dL (8.4-10.2); Carbon Dioxide 29 mmol/L (22-29); Chloride 106 mmol/L (96-108); Estimated Glomerular Filt Rate > 60; Glucose Random 91 mg/dL (60-115); Potassium 4.2 mmol/L (3.3-5.1); Sodium 140 mmol/L (135-145)
== END 2025-05-21 08:32 | disposition home or self-care (01) ==
LOC: HO.LAB 08:31
PROVIDERS: PCP Internal Medicine; Visit Provider Internal Medicine
DX: I25.10 Atherosclerotic heart disease of native coronary artery without angina pectoris (principal)
CPT/HCPCS: 36415; 80048; 85027; 85610

== ENCOUNTER → 2025-06-16 23:59 | Outpatient (BNV) | payer MEDICAID, SELFPAY | PROVIDERS: PCP Internal Medicine; Visit Provider Internal Medicine Cardiovascular Disease | DX: I20.89 Other forms of angina pectoris (principal); R93.1 Abnormal findings on diagnostic imaging of heart and coronary circulation | CPT/HCPCS: 93454; 99152 ==

== ENCOUNTER 2025-07-05 13:35 | Outpatient (AMB) | payer MEDICAID, SELFPAY ==
[2025-07-05 13:41] VITALS: BP 128/68; PULSE 82; BMI 22.8
--- NOTE | 2025-07-05 13:41 | MHC.OFFVIS ---
Vital Signs 07/05/25 13:41 Height 5 ft 9 in Weight 154 lb 5.177 oz BMI 22.8 BP 128/68 Blood Pressure Location Lt brachial Position Sitting Pulse 82 Pulse Source Pulse Oximeter Intake Visit Reasons: 2 wks s/p cath Hearing Aid Technician Required: Yes Hearing Aid Technician Name: APOLLO [id number] Allergies No Known Allergies Allergy (Verified 10/06/20 10:54) Medication List - Last Reconciled 07/05/25 by Akira Guerra MD apixaban (Eliquis) 5 mg PO BID atorvastatin 20 mg PO DAILY HPI Comments Details: Bryan returns for follow-up. Recently seen in consultation regarding an abnormal echocardiogram that showed apical wall motion abnormality, thrombus as well as aortic regurgitation. No previous cardiac history and he has got no symptoms either. In the past, has used drugs like cocaine and heroin but nothing in the last several years. He recently underwent a diagnostic catheterization and that showed no significant CAD. [facility] Medical History (Updated 03/28/25 @ 08:43 by Akira Guerra MD) Elevated cholesterol JOHN on CPAP Personal history of nicotine dependence Family history of colon cancer Surgical History History of colonoscopy Family History Mother Cancer Father No problems noted. Brother Colon abnormality Social History (Updated 03/28/25 @ 08:30 by Alpa Brown CMA) Unable to assess alcohol history related to: Unknown Alcohol intake: never Patient Tobacco Use Status: Former Tobacco user Years Smoked: (onset 16yo, 1/2-1ppd x 28yrs, 21pyh, quit 2014) Substance Use Type: Marijuana Review of Systems Const Denies weakness ENT Denies dizziness Card Denies chest pain, Denies chest pain with activity, Denies syncope, Denies rapid heart rate, Denies pedal edema, Denies edema, Denies leg edema, Denies lightheadedness, Denies palpitations, Denies dyspnea, Denies dyspnea on exertion and Denies orthopnea Resp Denies cough, Denies dyspnea and Denies dyspnea on exertion GI Denies hematochezia and Denies change in stool character Musc Denies abnormal gait, Denies muscle cramps, Denies muscle weakness, Denies numbness, Denies radiating pain into limb and Denies tingling Neuro Denies abnormal gait, Denies dizziness, Denies syncope, Denies numbness, Denies tingling and Denies weakness Endo Denies palpitations Physical Exam Vital Signs: Last Vital Signs Pulse 82 07/05/25 13:41 BP 128/68 07/05/25 13:41 BMI result Body Mass Index 22.8 Const General: comfortable and no acute distress Orientation/consciousness: patient oriented x3 HEENT Other: Unremarkable Head: Yes normal to inspection Neck Neck: Yes normal visual inspection Chest Chest palpation & inspection: normal inspection of the chest Resp Auscultation: clear to auscultation bilaterally Cardio Palpation: normal PMI Heart sounds: S1 normal heart sound present, S2 normal heart sound present, no gallops, no murmurs and no rubs GI Palpation (GI): Soft to palpation Back/Spine/Pelvis Other: unremarkable Skin General skin exam: no rashes or lesions noted Neuro General: patient oriented x3 Extrem General: Yes normal to inspection Psych Mental Status: mental status grossly normal Assessment & Plan Assessment & Plan (1) Non-rheumatic aortic regurgitation: Code(s): I35.1 - Nonrheumatic aortic (valve) insufficiency Category: Medical (2) Regional wall motion abnormality of heart: Code(s): R93.1 - Abnormal findings on diagnostic imaging of heart and coronary circulation Category: Medical (3) Left ventricular apical thrombus: Code(s): I51.3 - Intracardiac thrombosis, not elsewhere classified Category: Medical Plan Echocardiogram 2023- enlarged left ventricle with preserved LVEF. Apical dyskinesis with suspicion of thrombus. Reported at least moderate aortic regurgitation. Repeat echocardiogram 2024-LVEF 53%. Suspected LV dilated. [place] dyskinetic. No clear thrombus. Severe aortic regurgitation and suspicion of leaflet prolapse. Cardiac catheterization shows normal coronary arteries. Findings discussed with patient. He needs a transesophageal echocardiogram for further assessment of the aortic regurgitation. As LVEF is the lower end and there is also evidence of LV dilatation, he may need surgical referral for aortic valve replacement. He is quite anxious about it but we will start with a AUDREY and then plan further. He states that he has got lot of work commitments and hence he wants to schedule it in a way that will not interfere with his work. All questions answered. manager software used. No changes in anticoagulation. Patient thinks that he might be moving to [place] in the next few months and hence I explained to him that he will need to decide where he wants to pursue further workup either locally or after his move. Discussion Notes I discussed with the patient the presence of a leaky heart valve and the need for further evaluation through a transesophageal echocardiogram. We talked about the potential need for open-heart surgery if the valve's condition is severe, and I explained the risks and benefits of such a procedure. The patient was informed about the importance of scheduling the procedure and considering his upcoming move to [place], ensuring continuity of care. Patient was informed and verbally consented to the use of an ambient scribe for clinic note documentation during this visit. Patient Instructions: - Schedule the transesophageal echocardiogram at a convenient time. - Consider work commitments and relocation plans when scheduling the procedure. - Follow up with a heart surgeon after the procedure to discuss results and potential surgery. Coding Level of Care Code Est Pt Level 4 (75413) Complex EM visit Add On G2211 Diagnoses Non-rheumatic aortic regurgitation I35.1 Regional wall motion abnormality of heart R93.1 Left ventricular apical thrombus I51.3
--- OUTSIDE RECORDS SUMMARY | 2025-07-05 14:17 | XMS_ITS | Encounter Summary ---
Author Organization [employer] Address [address] [place] [address] Care Team Providers Care Fuse Coiler Name Role Phone King Gary MD Primary Care Prov ider Encounter Details Date Type Department Care Team (Latest Contact Info) Description 06/30/2025 Travel Social History Tobacco Use Types Packs/Day [...] your housing situation today? I have adelfo sing 04/02/[address] you li [...] Care Team (Late st Contact Info) Description 07/14/2025 3:15 PM EDT Telemedicine [facility] [address] [place] [address] King Gary MD [address] [place] [address] documented as of this encounter Visit Diagnoses Not on filedocumented in this encounter Additional Health Concerns Assessment Noted Time PHQ-9 Depression Total Score: 0 04/26/20 25 9:32 AM EDT documented as of this encounter Care Teams Fuse Coiler Relationship Specialty Start Date End Date King Gary MD [address] [place] [address] PCP - General Internal Medicine 04/03/24 documented as of this encounter
== END 2025-07-05 14:20 | disposition home or self-care (01) ==
LOC: HO.HCS 13:36
PROVIDERS: PCP Internal Medicine; Visit Provider Internal Medicine
DX: I35.1 Nonrheumatic aortic (valve) insufficiency (principal); R93.1 Abnormal findings on diagnostic imaging of heart and coronary circulation; I51.3 Intracardiac thrombosis, not elsewhere classified
CPT/HCPCS: 99214

== ENCOUNTER → 2025-07-05 13:35 | Outpatient (BNVA) | payer MEDICAID, SELFPAY | PROVIDERS: PCP Internal Medicine; Visit Provider Internal Medicine | DX: I35.1 Nonrheumatic aortic (valve) insufficiency (principal); R93.1 Abnormal findings on diagnostic imaging of heart and coronary circulation | CPT/HCPCS: 99212 ==

== ENCOUNTER 2025-08-19 11:41 | Day surgery (SDC) | payer MEDICAID, SELFPAY ==
[2025-08-17 12:46] VITALS: BMI 22.7
--- NOTE | 2025-08-17 13:13 | HO.ANESPROP2 ---
Documented by User: Sussy Coreas NP 08/17/25 13:17 HPI - Anesthesia Eval Consult details Narrative: 55yo M for Transesophageal Echocardiogram On eliquis: per cardiology office visit, abnormal echocardiogram that showed apical wall motion abnormality, thrombus as well as aortic regurgitation. No previous cardiac history and he has got no symptoms either. In the past, has used drugs like cocaine and heroin but nothing in the last several years. He recently underwent a diagnostic catheterization and that showed no significant CAD. [facility] Active Problems Active Problems: All Active Problems Non-rheumatic aortic regurgitation (Acute) Left ventricular apical thrombus (Acute) Atherosclerotic cardiovascular disease (Acute) Regional wall motion abnormality of heart (Acute) JOHN (obstructive sleep apnea) (Acute) Personal history of nicotine dependence (Acute) Family history of colon cancer (Acute) Past Medical History Medical History (Updated 08/17/25 @ 12:32 by Andie Philippe RN) On anticoagulant therapy Elevated cholesterol JOHN on CPAP Personal history of nicotine dependence Family history of colon cancer Family History Family History Mother Cancer Father No problems noted. Brother Colon abnormality Surgical History Surgical History History of colonoscopy Social History Social History (Updated 03/28/25 @ 08:30 by Alpa Brown CMA) Are you a primary care connector to a significant other at home: No Do you presently have visiting nurse or other home services: No Unable to assess alcohol history related to: Unknown Alcohol intake: never Patient Tobacco Use Status: Former Tobacco user Years Smoked: (onset 16yo, 1/2-1ppd x 28yrs, 21pyh, quit 2014) Second Hand Smoke Exposure: No Use of substances other than those prescribed or required for medical reasons: No Substance Use Type: Marijuana Have you been hit, kicked, punched, or otherwise hurt by someone within the past year? If so, by whom?: No Are you DNR?: No Advance Directives: No Advance Directives Information Provided: Yes Advance Directives on File: No Poor oral hygiene: No Meds Allergies Allergy/AdvReac Type Severity Reaction Status Date / Time No Known Allergies Allergy Verified 10/06/20 10:54 Home Medications ?Medication ?Instructions ?Recorded ?Confirmed ?Last Taken ?Type apixaban 5 mg tablet (Eliquis) 5 mg PO BID 03/28/25 08/19/25 08/17/25 History atorvastatin 20 mg tablet 20 mg PO DAILY 03/28/25 08/19/25 Unknown History Exam Height,Weight and Vital Signs: Height 5 ft 9 in Weight 69.853 kg Pertinent Lab Results Pertinent Lab Results: Laboratory Tests 05/21/25 09:01 WBC 5.9 Hgb 13.3 L Hct 39.1 L Plt Count 184 Sodium 140 Potassium 4.2 Chloride 106 Carbon Dioxide 29 BUN 21 H Creatinine 0.80 Narrative Narrative: Cardiac Cath 05/2025 Normal systemic pressures. Given concern for apical LV thrombus we decided not to cross the aortic valve. Coronary anatomy: Right dominant circulation. No significant coronary artery disease noted. ECHO 03/2025 Conclusions: - The left ventricular systolic function is low normal. The calculated ejection fraction is 53% by biplane method. - The apex segment is dyskinetic. - There is severe aortic valve regurgitation. Suspect leaflet prolapse. Assessment and Plan Assessment Anesthesia Assessment: Chart Reviewed Documented by User: Jazzy Benitez MD 08/19/25 12:47 [facility] Past Medical History Medical History (Updated 08/17/25 @ 12:32 by Andie Philippe RN) On anticoagulant therapy Elevated cholesterol JOHN on CPAP Personal history of nicotine dependence Family history of colon cancer Family History Family History Mother Cancer Father No problems noted. Brother Colon abnormality Family history of problems with anesthesia: No Surgical History Surgical History History of colonoscopy History of Problems with Anesthesia: No Social History Social History (Updated 03/28/25 @ 08:30 by Alpa Brown CMA) Are you a primary care connector to a significant other at home: No Do you presently have visiting nurse or other home services: No Unable to assess alcohol history related to: Unknown Alcohol intake: never Patient Tobacco Use Status: Former Tobacco user Years Smoked: (onset 16yo, 1/2-1ppd x 28yrs, 21pyh, quit 2014) Second Hand Smoke Exposure: No Use of substances other than those prescribed or required for medical reasons: No Substance Use Type: Marijuana Have you been hit, kicked, punched, or otherwise hurt by someone within the past year? If so, by whom?: No Are you DNR?: No Advance Directives: No Advance Directives Information Provided: Yes Advance Directives on File: No Poor oral hygiene: No Meds Allergies Allergy/AdvReac Type Severity Reaction Status Date / Time No Known Allergies Allergy Verified 10/06/20 10:54 Home Medications ?Medication ?Instructions ?Recorded ?Confirmed ?Last Taken ?Type apixaban 5 mg tablet (Eliquis) 5 mg PO BID 03/28/25 08/19/25 08/17/25 History atorvastatin 20 mg tablet 20 mg PO DAILY 03/28/25 08/19/25 Unknown History Exam Airway Mallampati Class: III (small mouth, caps lacey on top) TM Dist: >3cm Neck ROM: Full Heart: rrr Lungs: cta Assessment and Plan Assessment Anesthesia Assessment: Anesthesia Plan Discussed Final Anesthetic Review Family History of Problems with Anesthesia: No History of Problems with Anesthesia: No NPO: Yes ASA Class: III Final Preanesthetic Review: No Changes in Pt Med Stat, Meds/Allgs Chart Reviewed and Consent Obtained/Reviewed Patient Risk: Intermediate Procedure Risk: Intermediate Anesthetic Plan Anesthetic Plan: MAC: Disposition: Standard PACU
[2025-08-19] VITALS (7 sets, daily range): BP systolic 107–157; BP diastolic 68–80; PULSE 71–84; RESP 12–18; TEMP 36.1–36.3; O2SAT 91–97; BMI 23.8
--- NOTE | 2025-08-19 12:00 | CA_ITS ---
Transesophageal Echocardiogram Patient (Last, First, Middle): Bryan Godinez, Gender: Male Date of : 1970 Age: 55 Procedure Date: 08/19/2025 Procedure Type: Transesophageal Echocardiogram Location: OP Height: 172.72 cm Weight: kg BSA: m2 Heart Rate: 67 bpm Generator Man: Referring MD: Akira Guerra MD Symptoms: Aortic regurgitation Conclusion: ??? 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 Severe, highly eccentric aortic regurgitation. ??? There is moderate dilatation of the sinuses of Valsalva measuring 4.60 cm. Findings Procedure Information Consent was obtained prior to the procedure. Pre AUDREY oral cavity was checked and revealed no overcrowding. The adult 3D probe was passed with no difficulty. Left Ventricle Mildly increased left ventricular cavity size. The left ventricular systolic function is low normal. Right Ventricle Normal right ventricular cavity size and systolic function. Atria There is no evidence of a thrombus in the left atrial appendage. There is no evidence of interatrial shunt by color Doppler. Aortic Valve There is a normal trileaflet aortic valve. There is no aortic valve stenosis. 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 Severe, highly eccentric aortic regurgitation. Mitral Valve The mitral valve appears normal. There is no mitral valve regurgitation. There is no mitral valve stenosis. Pulmonic Valve The pulmonic valve was not well visualized. Tricuspid Valve Normal tricuspid valve structure. There is no tricuspid valve regurgitation. Great Vessels There is moderate dilatation of the sinuses of Valsalva measuring 4.60 cm. Pericardium/Pleural There is no evidence of pericardial effusion. Prior Study Comparison No significant change compared to prior study dated: 03/28/2025. Measurements Aortic Valve AI Pk Alexy: 4.80 AI [place]: 8.88 Great Vessels Aorta Sinus of Valsalva: 4.60 2.0-3.5 cm Updated by Akira Guerra on 01:40 PM with Status of Final Akira Guerra MD electronically signed on 08/21/2025 1:40:59 PM with status of Final
[2025-08-19] MEDS: Lactated Ringers 1,000 ML 100 ML IVCONT (12:16)
--- NOTE | 2025-08-19 12:59 | MHC.SHP ---
Pre-Procedural Eval Section A - 24 Hr Update-Section A only Date of Service: 08/19/25 The patient is an INPATIENT: No Section B - Complete if H&P > 30 days Chief Complaint: Nonrheumatic aortic (valve) insufficiency Details of Present Illness: Abnormal echocardiogram with severe aortic insufficiency. AUDREY to guide further therapy /surgery. Relevant Family History (Specify if Yes): No Relevant Social History: None Present Medications: see Short Stay Collaborative assessment Medical History: No relevant PMH Allergies: Allergies Allergy/AdvReac Type Severity Reaction Status Date / Time No Known Allergies Allergy Verified 10/06/20 10:54 Review of Systems Review of Systems Comment: 10 system review -ve Exam Exam Comment: HEENT- normal Neck- normal chest- normal Cardiac- diastolic murmur+ Abd- soft Neuro- normal Ext- normal Psych- normal Plan I have reviewed the history and physical and performed a pertinent physical examination on my patient. No changes have occurred unless specified. Time Spent With Patient Time: Total time managing care of this patient today ____ minutes.
== END 2025-08-19 15:38 | disposition home or self-care (01) ==
PROVIDERS: PCP Internal Medicine; Visit Provider Internal Medicine
PROC: (CPT 93312; principal; 2025-08-19 13:00)
DX: I35.1 Nonrheumatic aortic (valve) insufficiency (principal); R93.1 Abnormal findings on diagnostic imaging of heart and coronary circulation; I51.3 Intracardiac thrombosis, not elsewhere classified; E78.00 Pure hypercholesterolemia, unspecified; G47.33 Obstructive sleep apnea (adult) (pediatric); F12.90 Cannabis use, unspecified, uncomplicated; Z80.0 Family history of malignant neoplasm of digestive organs; Z79.01 Long term (current) use of anticoagulants; Z79.899 Other long term (current) drug therapy; Z99.89 Dependence on other enabling machines and devices; F14.11 Cocaine abuse, in remission; F11.11 Opioid abuse, in remission; Z87.891 Personal history of nicotine dependence
CPT/HCPCS: 93312; J2003; J2250; J2704; J3010

== ENCOUNTER → 2025-08-19 12:00 | Outpatient (BNV) | payer MEDICAID, SELFPAY | PROVIDERS: PCP Internal Medicine; Visit Provider Internal Medicine | DX: I35.1 Nonrheumatic aortic (valve) insufficiency (principal); I35.8 Other nonrheumatic aortic valve disorders | CPT/HCPCS: 76376; 93312; 93320; 93325 ==

== ENCOUNTER 2025-09-21 08:13 | Outpatient (REF) | payer MEDICAID, SELFPAY ==
--- OUTSIDE RECORDS SUMMARY | 2025-09-21 08:17 | XMS_ITS | Encounter Summary ---
Author Organization [employer] Address [address] [facility] [address] [place] [address] Care Team Providers Care Plunger Machine Operator Name Role Phone King Gary MD Primary Care Prov ider Reason for Visit * Reason Onset Date Comments Lab Orders 04/08/2024 Encounter Details Date Type Department Care Team (Late st Contact Info) Description 04/08/2024 Telephone [facility] [address] [place], [place] [phone] King Gary MD [address] [place], [place] [phone] Lab Orders Social History Tobacco Use Types [...] during 04/02 tele. Please contact pt at [phone] documented in this encounter Plan of Treatment Not on file documented as of this encounter Visit Diagnoses Not on filedocumented in this encounter Additional Health Concerns Assessment Noted Time PHQ-9 Depression Total Score: 0 04/02/20 9:31 AM EDT documented as of this encounter Care Teams Plunger Machine Operator Relationship Specialty Start Date End Date King Gary MD [address] [place] [phone] PCP - General Internal Medicine 04/03/24 documented as of this encounter
--- OUTSIDE RECORDS SUMMARY | 2025-09-21 08:17 | XMS_ITS | Encounter Summary ---
Author Organization [employer] Address [address] [facility] [address] [place] [address] Care Team Providers Care Rate Clerk Name Role Phone King Gary MD Primary Care Prov ider Reason for Visit * Reason Onset Date Comments Appointment Request 04/22/2024 Lab Orders 04/22/2024 Encounter Details Date Type Department Care Team ([facility] st Contact Info) Description 04/22/2024 Telephone [facility] [address] [place] [address] King Gary MD [address] [place], [place] [phone] Appointment Request; Lab Orders Social History Tobacco [...] than the orders would be put in sports book writer does not see anything noted on patient chart documented in this encounter Plan of Treatment Not on file documented as of this encounter Visit Diagnoses Not on filedocumented in this encounter Additional Health Concerns Assessment Noted Time PHQ-9 Depression Total Score: 0 04/02/20 9:31 AM EDT documented as of this encounter Care Teams Rate Clerk Relationship Specialty Start Date End Date King Gary MD [address] [place] [phone] PCP - General Internal Medicine 04/03/24 documented as of this encounter
--- OUTSIDE RECORDS SUMMARY | 2025-09-21 08:17 | XMS_ITS | Encounter Summary ---
Author Organization [employer] Address [address] [facility] [address] [place] [address] Care Team Providers Care Bookkeeping Service Sales Agent Name Role Phone King Gary MD Primary Care Prov ider Reason for Visit * Reason Comments Med Refill Encounter Details Date Type Department Care Team ([facility] st Contact Info) Description 08/22/2025 Refill C [facility] 505 [place], [place] [phone] King Gary MD [address] [place] [address] Social History Tobacco Use Types Packs/Day Years [...] as of this encounter Plan of Treatment Not on file documented as of this encounter Visit Diagnoses Not on filedocumented in this encounter Additional Health Concerns Assessment Noted Time PHQ-9 Depression Total Score: 0 04/26/20 25 9:32 AM EDT documented as of this encounter Care Teams Bookkeeping Service Sales Agent Relationship Specialty Start Date End Date King Gary MD [address] [place] [phone] PCP - General Internal Medicine 04/03/24 documented as of this encounter
--- OUTSIDE RECORDS SUMMARY | 2025-09-21 08:17 | XMS_ITS | Clinical Summary ---
Author Organization [employer] Address [address] [facility] [address] [place] [address] Care Team Providers Care Fleet Administrative Assistant Name Role Phone King Gary MD Primary Care Prov ider Allergies No known active allergies Medications atorvastatin (Lipitor) 20 MG tablet Take 1 tablet (20 mg) by mouth Once per day. 90 tablet 3 12/27/2024 Active Eliquis 5 MG tablet TAKE 1 TABLET(5 MG) BY MOUTH TWICE DAILY 60 tablet 3 05/23/2025 Active naproxen (Naprosyn) 500 MG tablet TAKE 1 TABLET(500 MG) BY MOUTH TWICE DAILY 60 tablet 07/12/2025 Active Active Problems Problem Noted Date Diagnosed Date Apical mural thrombus 12/27/2024 Assessment & Plan (05/13/2025 1:35 PM EDT): Followed by cardiology, on apixaban, no bleeding reported Assessment & Plan (01/27/2025 9:58 AM EST): [...] monitor Mixed hyperlipidemia 07/12/2024 Assessment & Plan (05/13/2025 1:36 PM EDT): On atorvastatin, last blood work resulted were stable, continue low cholesterol diet and exercise as tolerated, follow up in 3 months Assessment & Plan (01/27/2025 9:58 AM EST): [...] smoking cessation, follow up in 3-4 months Verdick palmaris 07/12/2024 Assessment & Plan (07/12/2024 12:27 [...] Encounters Date Type Department Care Team Description 09/15/2025 3:15 PM EDT Telemedicine [facility] [address] [place] [address] King Gary MD Mixed hyperlipidemia (Primary Dx) 09/15/2025 Travel 09/14/2025 Telephone [facility] [address] [place] [address] King Gary MD Chart Prep 08/22/2025 Refill [facility] [address] [place] [address] King Gary MD 07/11/2025 Refill [facility] [address] [place] [address] King Gary MD 06/30/2025 Travel 06/29/2025 Telephone [facility] [address] [place] [address] King Gary MD chart prep from Last 3 Months Immunizations Immunization Administration Dates Next Due Hep A, Adult 01/17/2017,03/24/2013 Hep B, adult 03/24/2013 Influenza, IIV3, injectable 11/14/2011 TD (adult), 2 Lf tetanus tox oid, preservative free, adsorbed 01/05/2019 Tdap 03/24/2013 Family History Medical History Relation Name Comments Hyperlipidemia Father Cancer Mother Cancer Sister Relation Name Status Comments Father Mother Sister Social History Tobacco Use Types Packs/Day Years Used Date Smoking Tobacco: Former Cigarettes 1 20 1 994 - 2013 Smokeless Tobacco: Never Tobacco Cessation:Counseling Given: [...] 60 06/02/2024 3:26 PM EDT Temperature 37.1 C (98.7 F) 06/02/2024 3:26 PM EDT Respiratory Rate 20 06/02/2024 3:26 PM EDT Oxygen Saturation - - Inhaled Oxygen Concentration - - Weight 68.5 kg (151 lb) 06/02/2024 3:26 PM EDT Height 167.6 cm (5' 6 ) 06/02/2024 3:26 PM EDT Body Mass Index 24.37 06/02/2024 3:26 PM EDT Plan of Treatment Health Maintenance Due Date Last Done Comments CT Colonography 1969 FIT DNA/Cologuard 1969 FIT 1969 FOBT 1969 Sigmoidoscopy 1969 Hepatitis B Vaccines (2 of 3 - 19+ 3-dose series) 04/21/2013 03/24/2013 Lung Cancer Screening 2019 Pneumococcal Vaccine: 50+ Years (1 of 1 - PCV) 2019 Zoster Vaccines (1 of 2) 2019 Tobacco Screening 06/02/2025 06/02/2024 COVID-19 Vaccine (2 - 2024-2 6 season) 2025 04/04/2021 Influenza Vaccine (#1) 2025 11/14/2011 Colonoscopy 10/12/2025 10/12/2020 Colorectal Cancer Screening 10/12/2025 SDOH Screening 12/27/2025 12/27/2024 Alcohol/Substance Use Screening 04/26/2026 04/26/2025 Depression Screening 04/26/2026 04/26/2025, 04/26/2025 Disability Screening 09/15/2026 09/15/2025 DTaP/Tdap/Td Vaccines (3 - T d or Tdap) 01/05/2029 01/05/2019, 03/24/2013 Lipid Panel 12/31/2029 12/31/2024, 06/09/2024 RSV Patients and Patients Aged 60 years or older (1 - 1-dose 75+ series) 2044 Hepatitis A Vaccines Aged Out 01/17/2017, 03/24/2013 No longer eligible based on patient's age to complete this topic HIV Screening Completed 06/09/2024 Hepatitis C Screening Completed 06/09/2024 HIB Vaccines Aged Out No longer eligi ble based on patient's age to complete this topic HPV Vaccines Aged Out No longer eligi ble based on patient's age to complete this topic IPV Vaccines Aged Out No longer eligi ble based on patient's age to complete this topic Meningococcal B Vaccine Aged Out No l onger eligible based on patient's age to complete [...] (BMI) of 30.0 to 30.9 in adult [facility] COLONOSCOPY Routine 10/12/2020 from Last 3 Months or Most Recently Relevant to Health Maintenance Results * Lipid Panel, Standard (12/31/2024 9:00 AM EST) Triglycerides 72 <150 mg/dL [facility] Comment:Desirable Triglyceri de: less than 150 mg/dLBorderline High Triglyceride 150-199 mg/dLHigh Triglyceride: 200-499 mg/dLVery High Triglyceride: greater than or equal to 5OO mg/dL Cholesterol 142 <200 mg/dL [facility] Comment:Desirable Cholestero l: less than 200 mg/dLBorderline High Cholesterol: 200-239 mg/dLHigh Cholesterol: greater than 239 mg/dL LDL Cholesterol Calculated 72 <100 mg/dL [facility] Comment:Desirable LDL: less than 100 mg/dLNear Optimal/Above Optimal LDL: 110- 129 mg/dLBorderline High LDL: 130-159 mg/dLHigh LDL: 160-189 mg/dLVery High LDL: greater than or equal to 190 mg/dL HDL Cholesterol 56 >40 mg/dL [facility] Comment:Desirable HDL: great er than 40 mg/dL Note: This HDL assay may give artificially low results in patients with liver disease. Blood Venous blood specimen / Unknown 12/31/2024 9:00 AM EST 12/31/2024 11:44 AM EST King Arteaga MD LAB BLOOD ORDERABL ES Final Result Performing Organization Address [facility] [place] [facility] Co de Phone Number [facility] [address] [place] [phone] * Hepatitis C Antibody with Reflex to HCV, RNA, Quantitative, Real-Time PCR (06/09/2024 8:31 AM EDT) Hepatitis C Antibody Nonreactive Nonreactive [facility] Comment:Antibodies to HCV no t detected; does not exclude early acuteHCV infection. Blood Venous blood specimen / Unknown 06/09/2024 8:31 AM EDT 06/09/2024 1:59 PM EDT King Arteaga MD LAB BLOOD ORDERABL ES Final Result Performing Organization Address [facility] [place] [facility] Co de Phone Number [facility] [address] [place] [phone] * HIV-1/2 Antigen and Antibodies, Fourth Generation, with Reflexes (06/09/2024 8:31 AM EDT) HIV AB/AG Nonreactive Nonreactive [facility] Comment:HIV-1 p24 Ag and/or HIV-1/HIV-2 Ab not detected.A test result that is nonreactive does not exclude thepossibility of exposure to or infection with HIV-1 and/orHIV-2. Nonreactive results in this assay for individualswith prior exposure to HIV-1 and/or HIV-2 may be due toantigen and antibody levels that are below the limit ofdetection of this assay.The [employer] HIV Ag/Ab Combo assay result andsupplemental assay results should be interpreted inconjunction with the patient's clinical presentation,history and other laboratory results. If the results areinconsistent with clinical evidence, additional testing issuggested to confirm the result. Blood Venous blood specimen / Unknown 06/09/2024 8:31 AM EDT 06/09/2024 1:59 PM EDT King Arteaga MD LAB BLOOD ORDERABL ES Final Result Performing Organization Address City/State/[facility] Co de Phone Number [facility] [address] [place] [phone] * Colonoscopy (10/12/2020) [facility] Colonoscopy Normal Normal Narrative Shelly Josselyn - 10/12/2020 Colonoscopy order added Historical Provider HEALTH MAINTENANCE Final Result from Last 3 Months or Most Recently Relevant to Health Maintenance Insurance [facility] C3 Care Teams Fleet Administrative Assistant Relationship Specialty Start Date End Date NelsonKing Valdes MD [address] [place] [phone] PCP - General Internal Medicine 04/03/24
[2025-09-21 14:04] LABS: MANUAL DIFF FLAG NO
[2025-09-21 14:11] LABS: Hematocrit 41.4 % (42.0-52.0); Hemoglobin 13.7 g/dl (14.0-18.0); Imm Gran Abs Auto 0.01 X10*3/uL (0.00-0.03); Imm Gran Pct Auto 0.2 % (0.0-0.4); Lymphocytes Absolute Auto 1.7 X10*3/uL (1.2-4.9); Mean Corpuscular HGB Conc 33.1 g/dl (31.0-36.0); Mean Corpuscular Hemoglobin 28.3 pg (27.0-33.0); Mean Corpuscular Volume 85.5 fL (80.0-98.0); NRBC Abs Auto 0.000 X10*3/uL (0.0-0.012); NRBC Pct Auto 0.0 /100WBC (0.0-0.2); Platelet Count 196 X10*3/uL (160-400); Red Blood Count 4.84 X10*6/uL (4.60-5.80); White Blood Count 4.7 X10*3/uL (4.8-10.8)
[2025-09-21 14:39] LABS: Alanine Aminotransferase 36 U/L (0-40); Albumin Level 4.4 g/dL (3.5-5.0); Alkaline Phosphatase 73 U/L (39-117); Anion Gap 10 (12-20); Aspartate Amino Transferase 36 U/L (5-37); Blood Urea Nitrogen 13 mg/dL (9-16); Calcium 9.0 mg/dL (8.4-10.2); Carbon Dioxide 29 mmol/L (22-29); Chloride 107 mmol/L (96-108); Cholesterol 152 mg/dL (<200); Estimated Glomerular Filt Rate > 60; HDL Cholesterol 43 mg/dL (>40); Potassium 3.8 mmol/L (3.3-5.1); Sodium 142 mmol/L (135-145); Total Protein 7.0 g/dL (6.5-8.0); Triglycerides 100 mg/dL (<150)
== END 2025-09-21 08:14 | disposition home or self-care (01) ==
LOC: HO.CHCLDS 08:13
PROVIDERS: Visit Provider Internal Medicine
DX: I35.1 Nonrheumatic aortic (valve) insufficiency (principal); R93.1 Abnormal findings on diagnostic imaging of heart and coronary circulation; I51.3 Intracardiac thrombosis, not elsewhere classified; E78.2 Mixed hyperlipidemia; Z87.891 Personal history of nicotine dependence; Z79.899 Other long term (current) drug therapy
CPT/HCPCS: 36415; 80053; 80061; 85025; 99212

== ENCOUNTER 2025-09-21 13:47 | Outpatient (AMB) | payer MEDICAID, SELFPAY ==
--- NOTE | 2025-09-21 13:53 | A.OFFVIS_ITS ---
Vital Signs 09/21/25 13:54 Height 5 ft 9 in Weight 159 lb 2.78 oz BMI 23.5 BP 124/56 L Blood Pressure Location Lt brachial Position Sitting Pulse 78 Pulse Source Pulse Oximeter Intake Visit Reasons: s/p AUDREY Photovoltaic Installer Required: Yes Photovoltaic Installer Services: Photovoltaic Installer Present Photovoltaic Installer Name: gila Laughlin [id number] [place] Accompanied by: Self / Same As Patient Allergies No Known Allergies Allergy (Verified 09/21/25 13:57) Medication List - Last Reconciled 09/21/25 by Akira Guerra MD apixaban (Eliquis) 5 mg PO BID atorvastatin 20 mg PO DAILY naproxen 500 mg PO ONCE PRN HPI Comments Details: Bryan returns for follow-up. Recently seen in consultation regarding an abnormal echocardiogram that showed apical wall motion abnormality, thrombus as well as aortic regurgitation. No previous cardiac history and he has got no symptoms either. In the past, has used drugs like cocaine and heroin but nothing in the last several years. He recently underwent a diagnostic catheterization and that showed no significant CAD. Then underwent AUDREY which confirms severe aortic regurgitation. He has already met with the cardiac surgeon and surgery is pending for next month. Overall, he states he feels okay. [facility] Medical History (Updated 08/17/25 @ 12:32 by Andie Philippe RN) On anticoagulant therapy Elevated cholesterol JOHN on CPAP Personal history of nicotine dependence Family history of colon cancer Surgical History History of colonoscopy Family History Mother Cancer Father No problems noted. Brother Colon abnormality Social History (Updated 03/28/25 @ 08:30 by Alpa Brwon CMA) Are you a primary ambulatory care coordinator to a significant other at home: No Do you presently have visiting nurse or other home services: No Alcohol intake: never Patient Tobacco Use Status: Former Tobacco user Years Smoked: (onset 16yo, 1/2-1ppd x 28yrs, 21pyh, quit 2014) Second Hand Smoke Exposure: No Substance Use Type: Marijuana Review of Systems Const Denies daytime sleepiness, Denies difficulty sleeping, Denies snoring, Denies stops breathing during sleep and Denies weakness Card Denies chest pain, Denies rapid heart rate, Denies irregular heart rhythm, Denies claudication, Denies leg edema, Denies lightheadedness, Denies palpitations, Denies dyspnea, Reports dyspnea on exertion, Denies orthopnea, Denies paroxysmal nocturnal dyspnea and Denies slow heart rate Resp Denies cough, Denies dyspnea, Reports dyspnea on exertion and Denies snoring GI Reports no additional complaints, Denies hematochezia, Denies change in stool character and Denies dyspepsia Musc Denies abnormal gait, Denies muscle weakness and Denies numbness Neuro Denies abnormal gait, Denies numbness and Denies weakness Endo Denies palpitations Physical Exam Vital Signs: Last Vital Signs Pulse 78 09/21/25 13:54 BP 124/56 L 09/21/25 13:54 BMI result Body Mass Index 23.5 Const General: comfortable and no acute distress Orientation/consciousness: patient oriented x3 HEENT Other: Unremarkable Head: Yes normal to inspection Neck Neck: Yes normal visual inspection Chest Chest palpation & inspection: normal inspection of the chest Resp Auscultation: clear to auscultation bilaterally Cardio Palpation: normal PMI Heart sounds: S1 normal heart sound present, S2 normal heart sound present, no gallops, Murmur heart sound present diastolic III/, at the left sternal border and at the right sternal border and no rubs GI Palpation (GI): Soft to palpation Back/Spine/Pelvis Other: unremarkable Skin General skin exam: no rashes or lesions noted Neuro General: patient oriented x3 Extrem General: Yes normal to inspection Psych Mental Status: mental status grossly normal Assessment & Plan Assessment & Plan (1) Non-rheumatic aortic regurgitation: Code(s): I35.1 - Nonrheumatic aortic (valve) insufficiency Category: Medical (2) Regional wall motion abnormality of heart: Code(s): R93.1 - Abnormal findings on diagnostic imaging of heart and coronary circulation Category: Medical (3) Left ventricular apical thrombus: Code(s): I51.3 - Intracardiac thrombosis, not elsewhere classified Category: Medical Plan Echocardiogram 2023- enlarged left ventricle with preserved LVEF. Apical dyskinesis with suspicion of thrombus. Reported at least moderate aortic regurgitation. Repeat echocardiogram 2024-LVEF 53%. Suspected LV dilated. [place] dyskinetic. No clear thrombus. Severe aortic regurgitation and suspicion of leaflet prolapse. Transesophageal echocardiogram-prolapse of non coronary aortic cusp of the LVOT with severe eccentric aortic regurgitation. Sinus of Valsalva measured at 4.6 cm but I am not clear if it is over measurement, as it was okay on the transthoracic studies as well as CAT scan. Cardiac catheterization shows normal coronary arteries. He has already seen the cardiac surgeon plan is to go for valve replacement. We discussed about the pros and cons of mechanical as well as bioprosthetic aortic valve replacement and as he indeed needs long-term anticoagulation for the apical thrombus due to adjacent dyskinesis, we may as well do a mechanical valve and switch him to Coumadin. Any case, discussed this issue with Dr. Beltre, and he will again discuss with the patient regarding the pros and cons of each approach. Discussion Notes During the consultation, I discussed with the patient the options for valve replacement, including the benefits and drawbacks of metal versus tissue valves. I explained that a metal valve would require lifelong anticoagulation with Coumadin, while a tissue valve might necessitate another surgery in the future. The patient was advised to consider these options carefully and to discuss further with the surgeon before making a decision. Patient was informed and verbally consented to the use of an ambient scribe for clinic note documentation during this visit. Total time spent including review of data, counseling, documentation, discussion with surgeon, coordination of care-60 minutes. Patient Instructions: - Consider the options between a metal and tissue valve carefully. - Discuss with your surgeon and make a decision before the scheduled surgery. - Prepare for potential changes in medication if a metal valve is chosen. Coding Level of Care Code Est Pt Level 5 (46320) Complex EM visit Add On G2211 Diagnoses Non-rheumatic aortic regurgitation I35.1 Regional wall motion abnormality of heart R93.1 Left ventricular apical thrombus I51.3
[2025-09-21 13:54] VITALS: BP 124/56; PULSE 78; BMI 23.5
--- OUTSIDE RECORDS SUMMARY | 2025-09-21 19:48 | XMS_ITS | Encounter Summary ---
Author Organization [employer] Address [address] [facility] [address] [address] [place] [address] Care Team Providers Care Lead Electrical Controls Engineer Name Role Phone King Gary MD Primary Care Prov ider Reason for Visit * Reason Onset Date Comments Lab Orders 04/08/2024 Encounter Details Date Type Department Care Team (Late st Contact Info) Description 04/08/2024 Telephone C [facility] [address] [place], [place] [phone] King Gary MD [address] [place], [place] [phone] Lab Orders Social History Tobacco Use Types [...] during 04/02 tele. Please contact pt at [phone] documented in this encounter Plan of Treatment Not on file documented as of this encounter Visit Diagnoses Not on filedocumented in this encounter Additional Health Concerns Assessment Noted Time PHQ-9 Depression Total Score: 0 04/02/20 9:31 AM EDT documented as of this encounter Care Teams Lead Electrical Controls Engineer Relationship Specialty Start Date End Date King Gary MD [address] [place] [phone] PCP - General Internal Medicine 04/03/24 documented as of this encounter
--- OUTSIDE RECORDS SUMMARY | 2025-09-21 19:48 | XMS_ITS | Encounter Summary ---
Author Organization [employer] Address [address] [place] [address] Care Team Providers Care Continuity Reader Name Role Phone King Gary MD Primary Care Prov ider Encounter Details Date Type Department Care Team (Late st Contact Info) Description 09/21/2025 Orders Only [facility] External Provider, [facility] Social History Tobacco Use Types Packs/Day Years [...] on file documented as of this encounter Procedures Procedure Name Priority Date/Time Associated Diagnosis Comments LDCT LUNG SCREENING Routine 09/21/2025 4 :27 PM EDT documented in this encounter Results * CT Lung Screening Low dose (09/21/2025 4:27 PM EDT) Anatomical Region Laterality Modality Lung Computed Tomogra phy 09/21/2025 4:27 PM EDT Narrative 09/21/2025 5:46 PM EDT [place] [address] CT Scan Report Signed Patient: Bryan Godinez MR#: [id number] : 1970 Acct:[id number] Age/Sex: 55 / M ADM Date: 09/21/25 Loc: HO.CT Attending Dr: Gayle Alvarado PA-C Ordering Physician: Gayle Alvarado PA-C Date of Service: 09/21/25 Procedure(s): CT lung screening Accession Number(s): [id number] cc: King Gary MD; Gayle Alvarado PA-C Report Number: [id number]: Total DLP = 73.00 mGy-cm Reason for Exam: Z87.891 - Personal history of nicotine dependence EXAMINATION: CT LOW-DOSE SCREENING CHEST WITHOUT CONTRAST CLINICAL INFORMATION: Z87.891 - Personal history of nicotine dependence COMPARISON: CT lung screening on June 11, 2024 TECHNIQUE: Multidetector volumetric CT imaging of the chest is performed on a Siemens SOMATOM Definition scanner without contrast using low dose technique. Additional 2D coronal and sagittal reformatted images and axial 3D maximum intensity projection (MIP) images are generated on the CT workstation. This CT examination was performed using dose optimization techniques as appropriate, variously including the following: *Automated exposure control *Adjustment of mA and/or kV according to patient size (this includes techniques or standardized protocols for targeted exams where dose is matched to indication/reason for exam; i.e. extremities or head) *Use of iterative reconstruction technique TOTAL EXAM DLP: 73 mGycm. CTDIvol: 2.64 mGy. FINDINGS: Respiratory motion partially limits evaluation. PULMONARY NODULES: -3 mm fissural nodule along the left fissure (6:49/151) is unchanged. -Previously seen right apical nodule is not seen on today's exam. -No new or enlarging nodules. LUNGS: Central airways are patent. Lungs bilaterally symmetrically expanded. No focal lung consolidation. Linear scarring in the left lung base. PLEURA: No effusion or pneumothorax. MEDIASTINUM: Mild cardiomegaly. No pericardial effusion. Normal caliber of the thoracic aorta. No bulky lymphadenopathy. CORONARY ARTERY CALCIFICATION: None visualized on this study. THYROID GLAND: Relatively atrophic CHEST WALL/AXILLA: Unremarkable. UPPER ABDOMEN: Redemonstration of calcification in the segment II of the liver. OSSEOUS STRUCTURES: No suspicious destructive bone lesion. Moderate to severe dextroscoliosis. CT/CT lung screening IMPRESSION: Respiratory motion partially limits evaluation. 1. Tiny pulmonary nodule along the left fissure is unchanged from 2023. 2. No new pulmonary nodules. 3. No active lung disease. ASSESSMENT: 1. Lung-RADS Category 2: Benign appearance or behavior of nodules. 2. Lung-RADS Category S: Negative. There are no clinically significant or potentially clinically significant findings not related to the lungs requiring urgent additional evaluation. RECOMMENDATION: Continued routine annual low-dose CT lung screening in 1 year is recommended. An order for CT CHEST LOW DOSE CANCER SCREENING ([id number]) can be placed. Electronically signed by: Kenyon Cast MD 09/21/2025 05:43 PM EDT Dictated By: Kenyon Cast MD Signed By: <Electronically signed by Kenyon Cast MD in OV> 09/21/25 1742 DD/ 1627 TD/TT: 09/21/25 1648 Risk Specialist: Procedure Note Donotuseinterpreter, Image - 09/21/[address] [address] [address] Scan Report Signed Patient: Oumou Godinez#: [id number] : 1970Acct:[id number] Age/Sex: 55 / MADM Date: 09/21/25 Loc: HO.CT Attending Dr: Gayle Alvarado PA-C Ordering Physician: Gayle Alvarado PA-C Date of Service: 09/21/25 Procedure(s): CT lung screening Accession Number(s): [id number] cc: King Gary MD; Gayle Alvarado PA-C Report Number: [id number]: Total DLP = 73.00 mGy-cm Reason for Exam: Z87.891 - Personal history of nicotine dependence EXAMINATION: CT LOW-DOSE SCREENING CHEST WITHOUT CONTRAST CLINICAL INFORMATION: Z87.891 - Personal history of nicotine dependence COMPARISON: CT lung screening on June 11, 2024 TECHNIQUE: Multidetector volumetric CT imaging of the chest is performed on a Siemens SOMATOM Definition scanner without contrast using low dose technique. Additional 2D coronal and sagittal reformatted images and axial 3D maximum intensity projection (MIP) images are generated on the CT workstation. This CT examination was performed using dose optimization techniques as appropriate, variously including the following: *Automated exposure control *Adjustment of mA and/or kV according to patient size (this includes techniques or standardized protocols for targeted exams where dose is matched to indication/reason for exam; i.e. extremities or head) *Use of iterative reconstruction technique TOTAL EXAM DLP: 73 mGycm. CTDIvol: 2.64 mGy. FINDINGS: Respiratory motion partially limits evaluation. PULMONARY NODULES: -3 mm fissural nodule along the left fissure (6:49/151) is unchanged. -Previously seen right apical nodule is not seen on today's exam. -No new or enlarging nodules. LUNGS: Central airways are patent. Lungs bilaterally symmetrically expanded. No focal lung consolidation. Linear scarring in the left lung base. PLEURA: No effusion or pneumothorax. MEDIASTINUM: Mild cardiomegaly. No pericardial effusion. Normal caliber of the thoracic aorta. No bulky lymphadenopathy. CORONARY ARTERY CALCIFICATION: None visualized on this study. THYROID GLAND: Relatively atrophic CHEST WALL/AXILLA: Unremarkable. UPPER ABDOMEN: Redemonstration of calcification in the segment II of the liver. OSSEOUS STRUCTURES: No suspicious destructive bone lesion. Moderate to severe dextroscoliosis. CT/CT lung screening IMPRESSION: Respiratory motion partially limits evaluation. 1. Tiny pulmonary nodule along the left fissure is unchanged from 2023. 2. No new pulmonary nodules. 3. No active lung disease. ASSESSMENT: 1. Lung-RADS Category 2: Benign appearance or behavior of nodules. 2. Lung-RADS Category S: Negative. There are no clinically significant or potentially clinically significant findings not related to the lungs requiring urgent additional evaluation. RECOMMENDATION: Continued routine annual low-dose CT lung screening in 1 year is recommended. An order for CT CHEST LOW DOSE CANCER SCREENING ([id number]) can be placed. Electronically signed by: Kenyon Cast MD 09/21/2025 05:43 PM EDT Dictated By: Kenyno Cast MD Signed By: <Electronically signed by Kenyon Cast MD in OV> 09/21/25 1743 DD/ 1627 TD/TT: 09/21/25 1648 Risk Specialist: [facility] External Provider IMG CT PROCEDURES Final Result documented in this encounter Visit Diagnoses Not on filedocumented in this encounter Additional Health Concerns Assessment Noted Time PHQ-9 Depression Total Score: 0 04/26/20 25 9:32 AM EDT documented as of this encounter Care Teams Continuity Reader Relationship Specialty Start Date End Date King Gary MD [address] [place] [phone] PCP - General Internal Medicine 04/03/24 documented as of this encounter
--- OUTSIDE RECORDS SUMMARY | 2025-09-21 19:48 | XMS_ITS | Encounter Summary ---
Author Organization [employer] Address [address] [place] [address] Care Team Providers Care Sueding And Buffing Machine Operator Name Role Phone King Gary MD Primary Care Prov ider Reason for Visit * Reason Onset Date Comments Appointment Request 04/22/2024 Lab Orders 04/22/2024 Encounter Details Date Type Department Care Team ([facility] st Contact Info) Description 04/22/[address] [facility] MED[facility] [address] [place] [address] King Gary MD [address] [place], [place] [phone] Appointment Request; Lab Orders Social History Tobacco [...] than the orders would be put in bond underwriter does not see anything noted on patient chart documented in this encounter Plan of Treatment Not on file documented as of this encounter Visit Diagnoses Not on filedocumented in this encounter Additional Health Concerns Assessment Noted Time PHQ-9 Depression Total Score: 0 04/02/20 9:31 AM EDT documented as of this encounter Care Teams Sueding And Buffing Machine Operator Relationship Specialty Start Date End Date King Gary MD [address] [place] [phone] PCP - General Internal Medicine 04/03/24 documented as of this encounter
--- OUTSIDE RECORDS SUMMARY | 2025-09-21 19:48 | XMS_ITS | Encounter Summary ---
Author Organization [employer] Address [address] [place] [address] Care Team Providers Care Recycler Forklift Driver Truck Driver Name Role Phone King Gary MD Primary Care Prov ider Reason for Visit * Reason Comments Med Refill Encounter Details Date Type Department Care Team ([facility] st Contact Info) Description 08/22/2025 Refill [facility] [address] [place], [place] [phone] King Gary MD [address] [place] [address] Social History Tobacco Use Types Packs/Day Years [...] documented as of this encounter Care Teams Recycler Forklift Driver Truck Driver Relationship Specialty Start Date End Date King Gary MD [address] [place] [phone] PCP - General Internal Medicine 04/03/24 documented as of this encounter
--- OUTSIDE RECORDS SUMMARY | 2025-09-21 19:48 | XMS_ITS | Clinical Summary ---
Author Organization [employer] Address [address] [place] [address] Care Team Providers Care Briar Wood Sorter Name Role Phone King Gary MD Primary [...] Encounters Date Type Department Care Team Description 09/21/2025 Orders Only [facility] External Provider, [facility] 09/15/2025 3:15 PM EDT Telemedicine [facility] [address] [place] [phone] King Gary MD Mixed hyperlipidemia (Primary Dx) 09/15/2025 Travel 09/14/2025 Telephone [facility] MED [facility] PEDS [address] [place] [address] King Gary MD Chart Prep 08/22/2025 Refill [facility]ED[facility] [address] [place] [address] King Gary MD 07/11/2025 Refill [facility] [address] [place] [address] King Gary MD 06/30/2025 Travel 06/29/2025 Telephone [facility] [address] [place] [address] King Gary MD chart prep from Last [...] the past 12 months, has t he [employer], gas, oil or water company threatened to [...] series) 04/21/2013 03/24/2013 Lung Cancer Screening 2019 09/21/2025 Pneumococcal Vaccine: 50+ Years (1 of 1 [...] Tdap) 01/05/2029 01/05/2019, 03/24/2013 Lipid Panel 12/31/2029 09/21/2025, 12/31/2024, 06/09/2024 RSV Patients and Patients Aged [...] SCREENING Routine 09/21/2025 4 :27 PM EDT LIPID PANEL, STANDARD Routine 09/21/2025 8:16 AM EDT Mixed hyperlipidemia COMPREHENSIVE METABOLIC PANEL Routine 09/21/2025 8:16 AM EDT Mixed hyperlipidemia CBC WITH AUTO DIFFERENTIAL Routine 09/21/2025 8:16 AM EDT Mixed hyperlipidemia HEPATITIS C AB W/REFL TO [...] Recently Relevant to Health Maintenance Results * CT Lung Screening Low dose (09/21/2025 4:27 PM EDT) Anatomical Region Laterality Modality Lung Computed Tomogra phy 09/21/2025 4:27 PM EDT Narrative 09/21/2025 5:46 PM EDT [address] [address] [address] Scan Report Signed Patient: Bryan Godinez MR#: [id number] : 1970 Acct:[id number] Age/Sex: 55 / M ADM Date: 09/21/25 Loc: HO.CT Attending Dr: Gayle Alvarado PA-C Ordering Physician: Gayle Alvarado PA-C Date of Service: 09/21/25 Procedure(s): CT lung screening Accession Number(s): [id number] cc: King Gary MD; Gayle Alvarado PA-C Report Number: [id number]: Total DLP = 73.00 mGy-cm Reason for [...] for CT CHEST LOW DOSE CANCER SCREENING ([id number]) can be placed. Electronically signed by: Kenyon Cast MD 09/21/2025 05:43 PM EDT Dictated By: Kenyon Cast MD Signed By: <Electronically signed by Kenyon Cast MD in OV> 09/21/25 1743 DD/ 1627 TD/TT: 09/21/25 1648 Speed Belt Sander: Procedure Note Donotuseinterpreter, Image - 09/21/[address] [place] [address] [address] Scan Report Signed Patient: Oumou Godinez#: [id number] : 1970Acct:[id number] Age/Sex: 55 / MADM Date: 09/21/25 Loc: HO.CT Attending Dr: Gayle Alvarado PA-C Ordering Physician: Gayle Alvarado PA-C Date of Service: 09/21/25 Procedure(s): CT lung screening Accession Number(s): [id number] cc: King Gary MD; Gayle Alvarado PA-C Report Number: [id number]: Total DLP = 73.00 mGy-cm Reason for [...] for CT CHEST LOW DOSE CANCER SCREENING ([id number]) can be placed. Electronically signed by: Kenyon Cast MD 09/21/2025 05:43 PM EDT Dictated By: Kenyon Cast MD Signed By: <Electronically signed by Kenyon Cast MD in OV> 09/21/25 1743 DD/ 1627 TD/TT: 09/21/25 1648 Speed Belt Sander: us [facility] External Provider IMG CT PROCEDURES Final Result * (ABNORMAL) CBC auto differential (09/21/2025 8:16 AM EDT) White Blood Count 4.7(L) 4.8 - 10.8 X10*3/uL [facility] Red Blood Count 4.84 4.60 - 5.80 X10*6/uL [facility] Hemoglobin 13.7(L) 14.0 - 18.0 g/dl [facility] Hematocrit 41.4(L) 42.0 - 52.0 % [facility] Mean Corpuscular Volume 85.5 80.0 - 98.0 fL [facility] Mean Corpuscular Hemoglobin 28.3 27.0 - 33.0 pg [facility] Mean Corpuscular HGB Conc 33.1 31.0 - 36.0 g/dl [facility] Red Cell Distribution Width 12.5 11.0 - 16.0 % [facility] Platelet Count 196 160 - 400 X10*3/uL [facility] Mean Platelet Volume 10.6 9.4 - 12.4 fL [facility] Neutrophils Percent Auto 51.2 45 - 73 % [facility] Imm Gran Pct Auto 0.2 0.0 - 0.4 % [facility] Lymphocytes Percent Auto 36.0 20 - 40 % [facility] Monocytes Percent Auto 8.6 2 - 11 % [facility] Eosinophils Percent Auto 3.4 0 - 4 % [facility] Basophils Percent Auto 0.6 0 - 2 % [facility] NRBC Pct Auto 0.0 0.0 - 0.2 /100WBC [facility] Neutrophils Absolute Auto 2.4 2.0 - 8.3 x10*3/uL [facility] Imm Gran Abs Auto 0.01 0.00 - 0.03 X10*3/uL [facility] Lymphocytes Absolute Auto 1.7 1.2 - 4.9 X10*3/uL [facility] Monocytes Absolute Auto 0.4 0.1 - 1.2 X10*3/uL [facility] Eosinophils Absolute Auto 0.2 0.0 - 0.4 X10*3/uL [facility] Basophils Absolute Auto 0.0 0.0 - 0.2 X10*3/uL [facility] NRBC Abs Auto 0.000 0.0 - 0.012 X10*3/uL [facility] Blood Venous blood specimen / Unknown 09/21/2025 8:16 AM EDT 09/21/2025 1:59 PM EDT us King Arteaga MD LAB BLOOD ORDERABL ES Final Result [facility] [address] [place] [address] [phone] * Lipid Panel, Standard (09/21/2025 8:16 AM EDT) Triglycerides 100 <150 mg/dL [facility] Comment:Desirable Triglyceri de: less than 150 mg/dLBorderline High Triglyceride 150-199 mg/dLHigh Triglyceride: 200-499 mg/dLVery High Triglyceride: greater than or equal to 5OO mg/dL Cholesterol 152 <200 mg/dL [facility] Comment:Desirable Cholestero l: less than 200 mg/dLBorderline High Cholesterol: 200-239 mg/dLHigh Cholesterol: greater than 239 mg/dL LDL Cholesterol Calculated 89 <100 mg/dL [facility] Comment:Desirable LDL: less than 100 mg/dLNear Optimal/Above Optimal LDL: 110- 129 mg/dLBorderline High LDL: 130-159 mg/dLHigh LDL: 160-189 mg/dLVery High LDL: greater than or equal to 190 mg/dL HDL Cholesterol 43 >40 mg/dL [facility] Comment:Desirable HDL: great er than 40 mg/dL Note: This HDL assay may give artificially low results in patients with liver disease. Blood Venous blood specimen / Unknown 09/21/2025 8:16 AM EDT 09/21/2025 1:59 PM EDT us King Arteaga MD LAB BLOOD ORDERABL ES Final Result [facility] [address] [place], [place] [phone] * (ABNORMAL) Comprehensive Metabolic Panel (09/21/2025 8:16 AM EDT) Sodium 142 135 - 145 mmol/L [facility] Potassium 3.8 3.3 - 5.1 mmol/L [facility] Chloride 107 96 - 108 mmol/L [facility] Carbon Dioxide 29 22 - 29 mmol/L [facility] Anion Gap 10(L) 12 - 20 [facility] Urea Nitrogen (BUN) 13 9 - 16 mg/dL [facility] Creatinine, Serum 0.84 0.5 - 1.4 mg/dL [facility] Estimated Glomerular Filt Rate >60 [facility] Comment:Chronic Kidney Disea se: Estimated GFR < 60 mL/min/1.00m6Tobvur Kidney Disease: Estimated GFR < 15 mL/min/1.73m2 Glucose 91 60 - 115 mg/dL [facility] Calcium 9.0 8.4 - 10.2 mg/dL [facility] Bilirubin, Total 2.9(H) 0.0 - 1.0 mg/dL [facility] Comment:Slight Icterus. Aspartate Amino Transferase 36 5 - 37 U/L [facility] Alanine Aminotransferase 36 0 - 40 U/L [facility] Total Protein 7.0 6.5 - 8.0 g/dL [facility] Albumin Level 4.4 3.5 - 5.0 g/dL [facility] Alkaline Phosphatase 73 39 - 117 U/L [facility] Blood Venous blood specimen / Unknown 09/21/2025 8:16 AM EDT 09/21/2025 1:59 PM EDT King Arteaga MD LAB BLOOD ORDERABL ES Final Result Performing Organization Address [facility]/ZIP Co de Phone Number [facility] [address] [place] [phone] * Hepatitis C Antibody with Reflex to HCV, RNA, Quantitative, Real-Time PCR (06/09/2024 8:31 AM EDT) Hepatitis C Antibody Nonreactive Nonreactive [facility] Comment:Antibodies to HCV no t detected; does not exclude early acuteHCV infection. Blood Venous blood specimen / Unknown 06/09/2024 8:31 AM EDT 06/09/2024 1:59 PM EDT us King Arteaga MD LAB BLOOD ORDERABL ES Final Result Performing Organization Address [facility] Co de Phone Number [facility] [address] [place] [phone] * HIV-1/2 Antigen and Antibodies, Fourth Generation, with Reflexes (06/09/2024 8:31 AM EDT) HIV AB/AG Nonreactive Nonreactive [facility] Comment:HIV-1 p24 Ag and/or HIV-1/HIV-2 Ab not detected.A test result that is nonreactive does not exclude thepossibility of exposure to or infection with HIV-1 and/orHIV-2. Nonreactive results in this assay for individualswith prior exposure to HIV-1 and/or HIV-2 may be due toantigen and antibody levels that are below the limit ofdetection of this assay.The [employer] HIV Ag/Ab Combo assay result andsupplemental assay results should be interpreted inconjunction with the patient's clinical presentation,history and other laboratory results. If the results areinconsistent with clinical evidence, additional testing issuggested to confirm the result. Blood Venous blood specimen / Unknown 06/09/2024 8:31 AM EDT 06/09/2024 1:59 PM EDT King Arteaga MD LAB BLOOD ORDERABL ES Final Result [facility] [address] [place] [phone] * Colonoscopy (10/12/2020) Colonoscopy Normal Normal Narrative Josselyn Bravo - 10/12/2020 Colonoscopy order added Historical Provider HEALTH MAINTENANCE Final Result from Last 3 Months or Most Recently Relevant to Health Maintenance Insurance [facility] [employer] Care Teams Briar Wood Sorter Relationship Specialty Start Date End Date King Gary MD [address] [place] [phone] PCP - General Internal Medicine 04/03/24
== END 2025-09-21 14:25 | disposition home or self-care (01) ==
PROVIDERS: PCP Internal Medicine; Visit Provider Internal Medicine
DX: I35.1 Nonrheumatic aortic (valve) insufficiency (principal); I51.3 Intracardiac thrombosis, not elsewhere classified; R93.1 Abnormal findings on diagnostic imaging of heart and coronary circulation
CPT/HCPCS: 99214

== ENCOUNTER 2025-09-21 16:18 | Outpatient (REF) | payer MEDICAID, SELFPAY ==
--- NOTE | ~2025-09-21 | CT_ITS ---
EXAMINATION: CT LOW-DOSE SCREENING CHEST WITHOUT CONTRAST CLINICAL INFORMATION: Z87.891 - Personal history of nicotine dependence COMPARISON: CT lung screening on June 11, 2024 TECHNIQUE: Multidetector volumetric CT imaging of the chest is performed on a Siemens SOMATOM Definition scanner without contrast using low dose technique. Additional 2D coronal and sagittal reformatted images and axial 3D maximum intensity projection (MIP) images are generated on the CT workstation. This CT examination was performed using dose optimization techniques as appropriate, variously including the following: *Automated exposure control *Adjustment of mA and/or kV according to patient size (this includes techniques or standardized protocols for targeted exams where dose is matched to indication/reason for exam; i.e. extremities or head) *Use of iterative reconstruction technique TOTAL EXAM DLP: 73 mGycm. CTDIvol: 2.64 mGy. FINDINGS: Respiratory motion partially limits evaluation. PULMONARY NODULES: -3 mm fissural nodule along the left fissure (6:49/151) is unchanged. -Previously seen right apical nodule is not seen on today's exam. -No new or enlarging nodules. LUNGS: Central airways are patent. Lungs bilaterally symmetrically expanded. No focal lung consolidation. Linear scarring in the left lung base. PLEURA: No effusion or pneumothorax. MEDIASTINUM: Mild cardiomegaly. No pericardial effusion. Normal caliber of the thoracic aorta. No bulky lymphadenopathy. CORONARY ARTERY CALCIFICATION: None visualized on this study. THYROID GLAND: Relatively atrophic CHEST WALL/AXILLA: Unremarkable. UPPER ABDOMEN: Redemonstration of calcification in the segment II of the liver. OSSEOUS STRUCTURES: No suspicious destructive bone lesion. Moderate to severe dextroscoliosis. CT/CT lung screening IMPRESSION: Respiratory motion partially limits evaluation. 1. Tiny pulmonary nodule along the left fissure is unchanged from 2023. 2. No new pulmonary nodules. 3. No active lung disease. ASSESSMENT: 1. Lung-RADS Category 2: Benign appearance or behavior of nodules. 2. Lung-RADS Category S: Negative. There are no clinically significant or potentially clinically significant findings not related to the lungs requiring urgent additional evaluation. RECOMMENDATION: Continued routine annual low-dose CT lung screening in 1 year is recommended. An order for CT CHEST LOW DOSE CANCER SCREENING ([id number]) can be placed. Electronically signed by: Kenyon Cast MD 09/21/2025 05:43 PM EDT
== END 2025-09-21 16:19 | disposition home or self-care (01) ==
LOC: HO.CT 16:18
PROVIDERS: PCP Internal Medicine; Visit Provider Physician Assistant Medical
DX: Z12.2 Encounter for screening for malignant neoplasm of respiratory organs (principal); Z87.891 Personal history of nicotine dependence
CPT/HCPCS: 71271

== ENCOUNTER → 2025-09-21 16:23 | Outpatient (BNV) | payer MEDICAID, SELFPAY | PROVIDERS: PCP Internal Medicine; Visit Provider Radiology Body Imaging | DX: F17.210 Nicotine dependence, cigarettes, uncomplicated (principal) | CPT/HCPCS: 71271 ==

== ENCOUNTER 2025-11-07 14:57 | Outpatient (AMB) | payer MEDICAID, SELFPAY ==
[2025-11-07 15:04] VITALS: BP 130/90; PULSE 75; BMI 23.2
--- NOTE | 2025-11-07 15:04 | A.OFFVIS_ITS ---
Vital Signs 11/07/25 15:04 Height 5 ft 9 in Weight 157 lb 6.561 oz BMI 23.2 BP 130/90 H Blood Pressure Location Lt brachial Position Sitting Pulse 75 Pulse Source Pulse Oximeter Intake Visit Reasons: r/s 11/21/25 s/p aortic valve replacement Test Automation Architect Required: Yes Test Automation Architect Language: Sand Mixer Operator Name: voice Allergies No Known Allergies Allergy (Verified 11/07/25 15:06) HPI HPI r/s 11/21/25 s/p aortic valve replacement: Details: The patient is a 55 year old male presenting for follow-up for aortic regurgitation, status post aortic valve replacement. On 10/12/2025, he underwent an aortic valve replacement with a 25 mm Mckeon Inspirus valve at [facility] and was discharged five days later. Prior to his surgery, he experienced progressive dyspnea, which has improved post-operatively. His medical history is significant for smoking, sleep apnea for which he uses a CPAP, and hyperlipidemia. A prior cardiac catheterization revealed no significant coronary artery disease. A recent echocardiogram showed an apical thrombus; however, an LV thrombus was not identified on echocardiogram or intraoperatively during his valve replacement hospitalization. His anticoagulation with Eliquis was discontinued prior to hospital discharge. Post-operatively, he attends cardiac rehab, performs light activities at home, and has recently resumed driving. [facility] Medical History On anticoagulant therapy Elevated cholesterol JOHN on CPAP Personal history of nicotine dependence Family history of colon cancer Surgical History History of colonoscopy Family History Mother Cancer Father No problems noted. Brother Colon abnormality Social History Are you a primary care director rn to a significant other at home: No Do you presently have visiting nurse or other home services: No Alcohol intake: never Patient Tobacco Use Status: Former Tobacco user Years Smoked: (onset 16yo, 1/2-1ppd x 28yrs, 21pyh, quit 2014) Second Hand Smoke Exposure: No Substance Use Type: Marijuana Review of Systems Const All systems reviewed & are unremarkable except as noted in HPI and below ENT Denies dizziness Card Details: mild chest wall soreness Denies chest pain, Denies chest pain at rest, Denies chest pain with activity, Denies rapid heart rate, Denies pedal edema, Denies edema, Denies leg edema, Denies lightheadedness, Denies palpitations, Denies dyspnea, Denies dyspnea on exertion and Denies orthopnea Resp Denies cough, Denies dyspnea and Denies dyspnea on exertion GI Denies hematochezia and Denies change in stool character Musc Denies abnormal gait, Denies limited range of motion, Denies muscle cramps, Denies muscle weakness, Denies numbness, Denies radiating pain into limb, Denies stiffness and Denies tingling Neuro Denies abnormal gait, Denies dizziness, Denies numbness and Denies tingling Endo Denies palpitations Physical Exam Vital Signs: Last Vital Signs Pulse 75 11/07/25 15:04 BP 130/90 H 11/07/25 15:04 BMI result Body Mass Index 23.2 Const General: cooperative, healthy appearing, comfortable and no acute distress Orientation/consciousness: patient oriented x3 Neck Neck: Yes normal visual inspection Chest Other: Sternal incision well approximated, skin healed, drain sites intact, no signs of swelling or infection. Resp Effort & Inspection: normal respiratory effort Auscultation: clear to auscultation bilaterally, no rales, no rhonchi and no wheezes Cardio Rate: regular rate Rhythm: regular rhythm Heart sounds: S1 normal heart sound present, S2 normal heart sound present, no gallops and no rubs Neuro General: patient oriented x3 Extrem General: Yes normal to inspection and No no pedal edema Psych Appearance: grossly normal Mental Status: mental status grossly normal Speech and movement: Normal speech and movement present Assessment & Plan Assessment & Plan (1) Non-rheumatic aortic regurgitation: Code(s): I35.1 - Nonrheumatic aortic (valve) insufficiency Category: Medical Plan: Recent finding of severe AVR. A cardiac catheterization showed no coronary artery disease. He then underwent aortic valve replacement 10/12/2025. He is recovering well with no concerning symptoms. Will check echocardiogram approximately 6 weeks post surgery. Continue amiodarone until his bottle runs out. Continue aspirin, atorvastatin and metoprolol. Continue cardiac rehab. Endocarditis prophylaxis reviewed. Cardiology follow-up 3 months, sooner if needed (2) H/O aortic valve replacement: Comment: 10/12/25 Bio AVR Code(s): Z95.2 - Presence of prosthetic heart valve Category: Surgical Plan: As above (3) Left ventricular apical thrombus: Code(s): I51.3 - Intracardiac thrombosis, not elsewhere classified Category: Medical Plan: Prior echo had shown left apical thrombus. He was put on Eliquis. Notes from [facility] indicate that no clot was seen during surgery or in the postop echo. They stopped his Eliquis prior to discharge. (4) S/P cardiac cath: Comment: 06/16/2025 normal coronary arteries Code(s): Z98.890 - Other specified postprocedural states Category: Surgical (5) Hospital discharge follow-up: Code(s): Z51.89 - Encounter for other specified aftercare Category: Medical Plan: Discharge notes reviewed Plan I discussed with the patient his recovery following his recent aortic valve replacement. He reports feeling well, with improved breathing and increasing strength. His exam today is encouraging, with a healing incision and a well- functioning audible valve. We reviewed his medication regimen, and I clarified that he should continue aspirin, atorvastatin, and metoprolol, but stop the amiodarone once his current supply is finished. I addressed his confusion regarding the need for long-term medication, explaining that his tissue valve (Mckeon Inspirus) does not require lifelong anticoagulation like a mechanical valve would. I advised him on the necessity of antibiotic prophylaxis for future dental procedures. As he has a cleaning scheduled next month, I recommended he reschedule it for at least 6 months post-surgery, and I will provide a prescription for the antibiotic. We will arrange for a follow-up echocardiogram in December to assess the new valve. I instructed him to continue with cardiac rehab and to return to the office in three months for a follow-up appointment. I provided return precautions, advising him to contact us if he experiences any new chest pain or shortness of breath. Orders: Orders CA echo transthoracic complete 3 Weeks I35.1 - Nonrheumatic aortic (valve) insufficiency, Z95.2 - Presence of prosthetic heart valve Patient Instructions: - Keep going to your cardiac rehab appointments. - Continue taking your aspirin, atorvastatin, and metoprolol. You can stop taking amiodarone once your current pills run out. - We will schedule an ultrasound of your heart (an echocardiogram) for December to check on your new valve. - It is very important to take an antibiotic one hour before any dental work, including cleanings. Please call your dentist to reschedule your upcoming appointment to a date that is at least 6 months after your surgery. We will send the antibiotic prescription to your pharmacy. - Please call our office if you have any new chest pain or trouble breathing. - Your next follow-up appointment in our office will be in 3 months. Patient was informed and verbally consented to the use of an ambient scribe for clinic note documentation during this visit. Visit time spent on chart review, interview, assessment, orders, documentation. Coding Level of Care Code Est Pt Level 4 (25603) Complex visit Add On G2211 Diagnoses Non-rheumatic aortic regurgitation I35.1 H/O aortic valve replacement Z95.2 Left ventricular apical thrombus I51.3 S/P cardiac cath Z98.890 Hospital discharge follow-up Z51.89 Time Spent (min) 36
--- OUTSIDE RECORDS SUMMARY | 2025-11-08 00:21 | XMS_ITS | Clinical Summary ---
Author Organization [employer] Address [address] [place] [address] Care Team Providers Care Shoulder Boner Name Role Phone King Gary MD Primary Care Prov ider Allergies No known active allergies Medications atorvastatin (Lipitor) 20 MG tablet Take 1 tablet (20 mg) by mouth Once per day. 90 tablet 3 5 12/27/19 26 Active naproxen (Naprosyn) 500 MG tablet TAKE 1 TABLET(500 MG) BY MOUTH TWICE DAILY 60 tablet 5 Active aspirin 81 MG EC tablet Take 1 tablet (81 mg) by mouth Once per day. 30 tablet 11 5 11/01/20 26 Active Eliquis 5 MG tablet TAKE 1 TABLET(5 MG) BY MOUTH TWICE DAILY 60 tablet 3 5 11/01/20 25 Discontinued Active Problems Problem Noted Date Diagnosed Date [...] monitor Mixed hyperlipidemia 07/12/2024 Assessment & Plan (10/03/2025 10:21 AM EST): Last labs were stable, will order new labs for guidance continue current dose of statin, encouraged lifestyle modifications Assessment & Plan (05/13/2025 1:36 PM EDT): [...] smoking cessation, follow up in 3-4 months Cameron nicolas 07/12/2024 Assessment & Plan (07/12/2024 12:27 PM [...] Encounters Date Type Department Care Team Description 11/01/2025 Travel 10/31/[address] [facility] CHC MED & PEDS [address] [place] [address] King Gary MD chart prep 10/18/[address] [facility] WALK-IN CENTER [address] [place] [phone] Bridget Nelson, SIOBHAN 10/18/2025 Patient Outreach [facility] MEDICINE [address] [place] [address] [phone] King Gary MD Transition Of Care (Tcm) (HDF- scheduled and SDOH screening completed on 12/27/2024) 10/18/2025 Patient Outreach [facility] MEDICINE [address] [place] [phone] King Gary MD Transition Of Care (Tcm) (HDF- Unscheduled LVM) 10/06/[address] [facility] MEDICINE [address] [place], [place] [phone] King Gary MD Call back 09/21/2025 Orders Only [facility] External Provider, [facility] 09/15/2025 3:15 PM EDT Telemedicine [facility] CHC MED & PEDS [address] [place] [address] King Gary MD Mixed hyperlipidemia (Primary Dx) 09/15/2025 Travel 09/14/2025 Telephone [facility] MED & PEDS [address] [place], [place] [phone] King Gary MD Chart Prep 08/22/2025 Refill [facility] MED & PEDS [address] [place], [place] [phone] King Gary MD from Last 3 Months Immunizations Immunization Administration [...] Smoking Tobacco: Former Cigarettes 1 20 1 - 2013 Smokeless Tobacco: Never Tobacco Cessation:Counseling [...] 3 - 19+ 3-dose series) 04/21/2013 03/24/2013 Pneumococcal Vaccine: 50+ Years (1 of 1 - PCV) 2019 RSV Patients and Patients Aged 60 years or older (1 - Risk 50-74 years 1-dose series) 2019 Zoster Vaccines (1 of 2) 2019 Tobacco Screening 06/02/2025 06/02/2024 COVID-19 Vaccine (2 - 2024-2 6 season) 2025 04/04/2021 Influenza Vaccine (#1) 2025 11/14/2011 Colonoscopy 10/12/2025 10/12/2020 Colorectal Cancer Screening 10/12/2025 SDOH Screening 12/27/2025 12/27/2024 Alcohol/Substance Use Screening 04/26/2026 04/26/2025 Depression Screening 04/26/2026 04/26/2025, 04/26/2025 Disability Screening 09/15/2026 09/15/2025 Lung Cancer Screening 09/21/2026 09/21/2025 , 09/21/2025, 06/11/2024 DTaP/Tdap/Td Vaccines (3 - T d or Tdap) 01/05/2029 01/05/2019, 03/24/2013 Lipid Panel 09/21/2030 09/21/2025, 12/31/2024, 06/09/2024 Hepatitis A Vaccines Completed 01/17/2017, 03/24/2013 HIV Screening Completed 06/09/2024 Hepatitis C Screening [...] PM EDT Narrative 09/21/2025 5:46 PM EDT [place] [address] CT Scan Report Signed Patient: Bryan Godinez MR#: [id number] : 1970 Acct:[id number] Age/Sex: 55 / M ADM Date: 09/21/25 Loc: HO.CT Attending Dr: Gayle Alvarado PA-C Ordering Physician: Gayle Alvarado PA-C Date of Service: 09/21/25 Procedure(s): CT lung screening Accession Number(s): [id number] cc: King Gary MD; Gayle Alvarado PA-C Report Number: [id number]: Total DLP = 73.00 mGy-cm Reason for [...] for CT CHEST LOW DOSE CANCER SCREENING ([id number]) can be placed. Electronically signed by: Kenyon Cast MD 09/21/2025 05:43 PM EDT Dictated By: Kenyon Cast MD Signed By: <Electronically signed by Kenyon Cast MD in OV> 09/21/25 1743 DD/ 1627 TD/TT: 09/21/25 1648 Electrical And Instrumentation Manager: Procedure Note Hedy, Image - 09/21/[address] [address] [address] Scan Report Signed Patient: Oumou Godinez#: [id number] : 1970Acct:[id number] Age/Sex: 55 / MADM Date: 09/21/25 Loc: HO.CT Attending Dr: Gayle Alvarado PA-C Ordering Physician: Gayle Alvarado PA-C Date of Service: 09/21/25 Procedure(s): CT lung screening Accession Number(s): [id number] cc: King Gary MD; Gayle Alvarado PA-C Report Number: [id number]: Total DLP = 73.00 mGy-cm Reason for [...] for CT CHEST LOW DOSE CANCER SCREENING ([id number]) can be placed. Electronically signed by: Kenyon Cast MD 09/21/2025 05:43 PM EDT Dictated By: Kenyon Cast MD Signed By: <Electronically signed by Kenyon Cast MD in OV> 09/21/25 1743 DD/ 1627 TD/TT: 09/21/25 1648 Electrical And Instrumentation Manager: [facility] External Provider IMG CT PROCEDURES Final Result * (ABNORMAL) CBC auto differential (09/21/2025 8:16 AM EDT) White Blood Count 4.7(L) 4.8 - 10.8 X10*3/uL [facility] Red Blood Count 4.84 4.60 - 5.80 X10*6/uL [facility] Hemoglobin 13.7(L) 14.0 - 18.0 g/dl [facility] Hematocrit 41.4(L) 42.0 - 52.0 % [facility] Mean Corpuscular Volume 85.5 80.0 - 98.0 fL [facility] Mean Corpuscular Hemoglobin 28.3 27.0 - 33.0 pg [facility] Mean Corpuscular HGB Conc 33.1 31.0 - 36.0 g/dl [facility] Red Cell Distribution Width 12.5 11.0 - 16.0 % [facility] Platelet Count 196 160 - 400 X10*3/uL [facility] Mean Platelet Volume 10.6 9.4 - 12.4 fL [facility] Neutrophils Percent Auto 51.2 45 - 73 % [facility] Imm Gran Pct Auto 0.2 0.0 - 0.4 % [facility] Lymphocytes Percent Auto 36.0 20 - 40 % [facility] Monocytes Percent Auto 8.6 2 - 11 % [facility] Eosinophils Percent Auto 3.4 0 - 4 % [facility] Basophils Percent Auto 0.6 0 - 2 % [facility] NRBC Pct Auto 0.0 0.0 - 0.2 /100WBC [facility] Neutrophils Absolute Auto 2.4 2.0 - 8.3 x10*3/uL [facility] Imm Gran Abs Auto 0.01 0.00 - 0.03 X10*3/uL [facility] Lymphocytes Absolute Auto 1.7 1.2 - 4.9 X10*3/uL [facility] Monocytes Absolute Auto 0.4 0.1 - 1.2 X10*3/uL [facility] Eosinophils Absolute Auto 0.2 0.0 - 0.4 X10*3/uL [facility] Basophils Absolute Auto 0.0 0.0 - 0.2 X10*3/uL [facility] NRBC Abs Auto 0.000 0.0 - 0.012 X10*3/uL [facility] Blood Venous blood specimen / Unknown 09/21/2025 8:16 AM EDT 09/21/2025 1:59 PM EDT us King Arteaga MD LAB BLOOD ORDERABL ES Final Result Performing Organization Address [facility] Co de Phone Number [facility] [address] [place] [phone] * Lipid Panel, Standard (09/21/2025 8:16 AM EDT) Triglycerides 100 <150 mg/dL [facility] Comment:Desirable Triglyceri de: less than 150 mg/dLBorderline High Triglyceride 150-199 mg/dLHigh Triglyceride: 200-499 mg/dLVery High Triglyceride: greater than or equal to 5OO mg/dL Cholesterol 152 <200 mg/dL [facility] Comment:Desirable Cholestero l: less than 200 mg/dLBorderline High Cholesterol: 200-239 mg/dLHigh Cholesterol: greater than 239 mg/dL LDL Cholesterol Calculated 89 <100 mg/dL [facility] Comment:Desirable LDL: less than 100 mg/dLNear Optimal/Above Optimal LDL: 110- 129 mg/dLBorderline High LDL: 130-159 mg/dLHigh LDL: 160-189 mg/dLVery High LDL: greater than or equal to 190 mg/dL HDL Cholesterol 43 >40 mg/dL [facility] Comment:Desirable HDL: great er than 40 mg/dL Note: This HDL assay may give artificially low results in patients with liver disease. Blood Venous blood specimen / Unknown 09/21/2025 8:16 AM EDT 09/21/2025 1:59 PM EDT King Arteaga MD LAB BLOOD ORDERABL ES Final Result Performing Organization Address [facility] Co de Phone Number [facility] [address] [place] [address] [phone] * (ABNORMAL) Comprehensive Metabolic Panel (09/21/2025 8:16 AM EDT) Sodium 142 135 - 145 mmol/L [facility] Potassium 3.8 3.3 - 5.1 mmol/L [facility] Chloride 107 96 - 108 mmol/L [facility] Carbon Dioxide 29 22 - 29 mmol/L [facility] Anion Gap 10(L) 12 - 20 [facility] Urea Nitrogen (BUN) 13 9 - 16 mg/dL [facility] Creatinine, Serum 0.84 0.5 - 1.4 mg/dL [facility] Estimated Glomerular Filt Rate >60 [facility] Comment:Chronic Kidney Disea se: Estimated GFR < 60 mL/min/1.59z3Lpbwja Kidney Disease: Estimated GFR < 15 mL/min/1.73m2 Glucose 91 60 - 115 mg/dL [facility] Calcium 9.0 8.4 - 10.2 mg/dL [facility] Bilirubin, Total 2.9(H) 0.0 - 1.0 mg/dL [facility] Comment:Slight Icterus. Aspartate Amino Transferase 36 5 - 37 U/L [facility] Alanine Aminotransferase 36 0 - 40 U/L [facility] Total Protein 7.0 6.5 - 8.0 g/dL [facility] Albumin Level 4.4 3.5 - 5.0 g/dL [facility] Alkaline Phosphatase 73 39 - 117 U/L [facility] Blood Venous blood specimen / Unknown 09/21/2025 8:16 AM EDT 09/21/2025 1:59 PM EDT King Arteaga MD LAB BLOOD ORDERABL ES Final Result [facility] [address] [place] [phone] * Hepatitis C Antibody with Reflex to HCV, RNA, Quantitative, Real-Time PCR (06/09/2024 8:31 AM EDT) Hepatitis C Antibody Nonreactive Nonreactive [facility] Comment:Antibodies to HCV no t detected; does not exclude early acuteHCV infection. Blood Venous blood specimen / Unknown 06/09/2024 8:31 AM EDT 06/09/2024 1:59 PM EDT King Arteaga MD LAB BLOOD ORDERABL ES Final Result Performing Organization Address [facility]/ZIP Co de Phone Number [facility] [address] [place] [address] [phone] * HIV-1/2 Antigen and Antibodies, Fourth Generation, with Reflexes (06/09/2024 8:31 AM EDT) HIV AB/AG Nonreactive Nonreactive [facility] Comment:HIV-1 p24 Ag and/or HIV-1/HIV-2 Ab not detected.A test result that is nonreactive does not exclude thepossibility of exposure to or infection with HIV-1 and/orHIV-2. Nonreactive results in this assay for individualswith prior exposure to HIV-1 and/or HIV-2 may be due toantigen and antibody levels that are below the limit ofdetection of this assay.The [employer] HIV Ag/Ab Combo assay result andsupplemental assay results should be interpreted inconjunction with the patient's clinical presentation,history and other laboratory results. If the results areinconsistent with clinical evidence, additional testing issuggested to confirm the result. Blood Venous blood specimen / Unknown 06/09/2024 8:31 AM EDT 06/09/2024 1:59 PM EDT King Arteaga MD LAB BLOOD ORDERABL ES Final Result Performing Organization Address [facility] Co de Phone Number [facility] [address] [place] [address] [phone] * Colonoscopy (10/12/2020) Colonoscopy Normal Normal Narrative Josselyn Bravo - 10/12/2020 Colonoscopy order added Moody Clark MD HEALTH MAINTENANCE Final Result from Last 3 Months or Most Recently Relevant to Health Maintenance Insurance [place] [employer] [place] ACCESS Care Teams Shoulder Boner Relationship Specialty Start Date End Date King Gary MD [address] [place] [phone] PCP - General Internal Medicine 04/03/24
--- OUTSIDE RECORDS SUMMARY | 2025-11-08 00:21 | XMS_ITS | Encounter Summary ---
Author Organization [employer] Address [address] [place] [address] Care Team Providers Care Contact Acid Plant Operator Helper Name Role Phone King Gray MD Primary Care Prov ider Reason for Visit * Reason Comments Med Refill Encounter Details Date Type Department Care Team ([facility] st Contact Info) Description 08/22/2025 Refill C [facility] [address] [place], [place] [phone] King Gary MD [address] [place] [address] Social History Tobacco Use Types Packs/Day Years [...] documented as of this encounter Care Teams Contact Acid Plant Operator Helper Relationship Specialty Start Date End Date King Gary MD [address] [place] [phone] PCP - General Internal Medicine 04/03/24 documented as of this encounter
--- OUTSIDE RECORDS SUMMARY | 2025-11-08 00:21 | XMS_ITS | Encounter Summary ---
Author Organization [employer] Address [address] [place] [address] Care Team Providers Care Petroleum Sampler Name Role Phone King Gary MD Primary Care Prov ider Reason for Visit * Reason Onset Date Comments Lab Orders 04/08/2024 Encounter Details Date Type Department Care Team (Late st Contact Info) Description 04/08/2024 Telephone C [facility] [address] [place], [place] [phone] King Gary MD [address] [place], [place] [phone] Lab Orders Social History Tobacco Use Types [...] during 04/02 tele. Please contact pt at [phone] documented in this encounter Plan of Treatment Not on file documented as of this encounter Visit Diagnoses Not on filedocumented in this encounter Additional Health Concerns Assessment Noted Time PHQ-9 Depression Total Score: 0 04/02/20 9:31 AM EDT documented as of this encounter Care Teams Petroleum Sampler Relationship Specialty Start Date End Date King Gary MD [address] [place] [phone] PCP - General Internal Medicine 04/03/24 documented as of this encounter
--- OUTSIDE RECORDS SUMMARY | 2025-11-08 00:21 | XMS_ITS | Encounter Summary ---
Author Organization [employer] Address [address] [facility] [address] [place] [address] Care Team Providers Care Towel Stretcher Name Role Phone King Gary MD Primary Care Prov ider Reason for Visit * Reason Onset Date Comments Appointment Request 04/22/2024 Lab Orders 04/22/2024 Encounter Details Date Type Department Care Team ([facility] st Contact Info) Description 04/22/[address] [facility] [address] [place] [address] King Gary MD [address] [place], [place] [phone] Appointment Request; Lab Orders Social History Tobacco [...] than the orders would be put in speech writer does not see anything noted on patient chart documented in this encounter Plan of Treatment Not on file documented as of this encounter Visit Diagnoses Not on filedocumented in this encounter Additional Health Concerns Assessment Noted Time PHQ-9 Depression Total Score: 0 04/02/20 9:31 AM EDT documented as of this encounter Care Teams Towel Stretcher Relationship Specialty Start Date End Date King Gary MD [address] [place] [phone] PCP - General Internal Medicine 04/03/24 documented as of this encounter
--- OUTSIDE RECORDS SUMMARY | 2025-11-08 00:21 | XMS_ITS | Clinical Summary ---
Author Organization [facility] Address [address] [place] [phone] Phone Care Team Providers Care Rock Mason Name Role Phone King Gary MD Primary Care Prov ider Encounters Date Type Department Care Team Description 10/15/2025 Orders Only [facility] [address] [place] [address] [phone] Homehealth, Interface ProviderMD from Last 3 Months Social History Tobacco Use Types Packs/Day Years Used Date Smoking Tobacco: Never Assessed Education Answer Date Recorded Are you interested in more education? Not on hal e 10/15/2025 Are you concerned about learning? Not on file 10/15/2025 No 10/15/2025 No 10/15/2025 Digital Access Answer Date Recorded No 10/15/2025 No 10/15/2025 Reliable internet access at home? Not on file 10/15/2025 Device with a working camera? Not on file Sex and Gender Information Value Date Recorded Sex Assigned at Not on file Legal Sex Male 8:13 AM EST Gender Identity Not on file Sexual Orientation Not on file Plan of Treatment Not on file Medical Devices Not on file Insurance [facility] C3 ACO C3 ACO C3 ACO C3 ACO [facility] C3 ACO [facility] C3 ACO Care Teams Rock Mason Relationship Specialty Start Date End Date King Gary MD [address] [place] [id number] PCP - General Internal Medicine 10/15/25 Additional Source Comments The information contained in this document represents components of the legal health record. It is not the complete legal health record.[facility]
== END 2025-11-07 15:38 | disposition home or self-care (01) ==
LOC: HO.HCS 14:58
PROVIDERS: PCP Internal Medicine; Visit Provider Nurse Practitioner Family
DX: I35.1 Nonrheumatic aortic (valve) insufficiency (principal); Z95.2 Presence of prosthetic heart valve; I51.3 Intracardiac thrombosis, not elsewhere classified; Z98.890 Other specified postprocedural states; Z51.89 Encounter for other specified aftercare
CPT/HCPCS: 99214

== ENCOUNTER → 2025-11-07 14:57 | Outpatient (BNVA) | payer MEDICAID, SELFPAY | PROVIDERS: PCP Internal Medicine; Visit Provider Nurse Practitioner Family | DX: I35.1 Nonrheumatic aortic (valve) insufficiency (principal); I51.3 Intracardiac thrombosis, not elsewhere classified; Z95.2 Presence of prosthetic heart valve; Z98.890 Other specified postprocedural states; Z79.01 Long term (current) use of anticoagulants | CPT/HCPCS: 99212 ==